=== PATIENT | male | born 1980 | race Caucasian/White ===

== ENCOUNTER 2016-12-05 08:08 | Emergency (ER) | payer BC, MEDICAID ==
[~2016-12-05] VITALS: Ht 180.3 cm; Wt 87.0 kg
[~2016-12-05 08:08] MED LIST: PRED20 PO; SUBO8MIS SL; VENTAER INH; ZITHTAB PO
[2016-12-05 08:22] VITALS: BP 119/83; PULSE 71; RESP 16; TEMP 98.1; O2SAT 99
[2016-12-05] MEDS ORDERED: DILA100C PO (08:52)
[2016-12-05] MEDS ORDERED: FAMOTIDINE 20 MG TAB PO ONE (09:15)
[2016-12-05] MEDS ORDERED: methylPREDNISolone SOD SUCC 125 MG/2 ML VIAL IM ONE (09:15)
[2016-12-05] MEDS ORDERED: diphenhydrAMINE HCL 50 MG/ML VIAL IM ONE (09:15)
[2016-12-05] MEDS ORDERED: TRIA.025%T TOPICAL (09:33)
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
== END 2016-12-05 09:41 | disposition home or self-care (01) ==
LOC: PHED 08:08
DX: S40.861A Insect bite (nonvenomous) of right upper arm, initial encounter (principal); L29.9 Pruritus, unspecified; W57.XXXA Bitten or stung by nonvenomous insect and other nonvenomous arthropods, initial encounter; Y93.9 Activity, unspecified; Y92.9 Unspecified place or not applicable; Y99.9 Unspecified external cause status
CPT/HCPCS: 96372; 96374; 99282; J1200; J2930

== ENCOUNTER 2017-02-19 22:03 | Emergency (ER) | payer BC ==
[~2017-02-19] VITALS: Ht 180.3 cm; Wt 86.8 kg
[~2017-02-19 22:03] MED LIST changes: +DILA100C PO; -PRED20 PO; +TRIA.025%T TOPICAL; -VENTAER INH; -ZITHTAB PO
[2017-02-19 22:09] VITALS: BP 139/86; PULSE 83; RESP 20; TEMP 98; O2SAT 97
[2017-02-19] MEDS ORDERED: CLIN1CAP5 PO (22:27)
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
[2017-02-19] MEDS ORDERED: CLINDAMYCIN 150 MG CAP PO ONE (22:30)
[2017-02-19] MEDS ORDERED: IBUPROFEN 400 MG TAB PO ONE (22:30)
[2017-02-19] MEDS ORDERED: PERC10TA27 PO (22:33)
[2017-02-19 22:54] VITALS: BP 126/83
== END 2017-02-19 22:54 | disposition home or self-care (01) ==
LOC: PHED 22:03
DX: K02.9 Dental caries, unspecified (principal); B19.20 Unspecified viral hepatitis C without hepatic coma; F17.200 Nicotine dependence, unspecified, uncomplicated; Z79.899 Other long term (current) drug therapy; Z88.0 Allergy status to penicillin
CPT/HCPCS: 99283

== ENCOUNTER 2017-04-21 16:09 | Emergency (ER) | payer SELFPAY ==
[~2017-04-21] VITALS: Ht 180.3 cm; Wt 81.5 kg
[~2017-04-21 16:09] MED LIST changes: +CLIN1CAP5 PO; +PERC10TA27 PO; -SUBO8MIS SL; -TRIA.025%T TOPICAL
[2017-04-21 16:11] VITALS: BP 144/79; PULSE 100; RESP 24; TEMP 98.8; O2SAT 98
== END 2017-04-21 17:33 | disposition left against medical advice (07) ==
LOC: NED 16:09
DX: R10.9 Unspecified abdominal pain (principal); Z53.21 Procedure and treatment not carried out due to patient leaving prior to being seen by health care provider
CPT/HCPCS: 99281

== ENCOUNTER 2017-05-23 01:00 | Emergency (ER) | payer SELFPAY ==
[~2017-05-23] VITALS: Ht 180.3 cm; Wt 82.0 kg
[2017-05-23 01:02] VITALS: BP 160/91; PULSE 74; RESP 16; TEMP 98.8; O2SAT 98
[2017-05-23] MEDS ORDERED: IBUP-1129 PO (01:29)
--- NOTE | 2017-05-23 01:29 | PD ---
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 He states that his feet feel swollen and tender. He denies any fevers or any other issues. Modifying Factors: None Associated Signs & Symptoms: Blisters on the feet, pain, swelling Risk Factors: None PFSH Past Medical History Diminished Hearing: No Hepatitis: Yes (HEP C) Musculoskeletal: Yes (Spinal fracture, left hand fracture ) Immunizations Current: Yes Seizures: Yes Tetanus Vaccination: < 5 Years Influenza Vaccination: Yes Social History Alcohol Use: No Tobacco Use: Yes (1 ppd) Substance Use: No Allergies-Medications (Allergen,Severity, Reaction): Coded Allergies: amoxicillin (Unverified Allergy, Severe, hives and rash, throat swelling, 05/23/17) penicillin G (Unverified Allergy, Severe, Hives all over body, 05/23/17) mushroom (Unverified Allergy, Unknown, 05/23/17) onion (Unverified Allergy, Unknown, Rash, 05/23/17) Reported Meds & Prescriptions Reported Meds & Active Scripts Active Clindamycin (Clindamycin HCl) 150 Mg Cap 300 Mg PO Q6H 7 Days Reported Percocet (Oxycodone-Acetaminophen) 10-325 mg Tab 1 Tab PO Q6H PRN Dilantin (Phenytoin Extended) 100 Mg Cap 300 Mg PO HS Review of Systems Except as stated in HPI: all other systems reviewed are Neg Physical Exam Narrative GENERAL: Well-nourished, well-developed young white male patient in no acute distress. SKIN: Focused skin assessment warm/dry. HEAD: Normocephalic. EYES: No scleral icterus. No injection or drainage. NECK: Supple, trachea midline. No JVD or lymphadenopathy. MUSCULOSKELETAL: No cyanosis, or edema. EXTREMITIES: No clubbing, cyanosis, or edema. Patient has 2 and 3 cm blisters at the bottom of both feet. There is no surrounding erythema or underlying fluctuance, tender to palpation. He has small abrasions to the ER part of both feet. Medial part of both feet. Neurovascularly intact. Data Data Last Documented VS Vital Signs Date Time Temp Pulse Resp B/P (MAP) Pulse Ox O2 Delivery O2 Flow Rate FiO2 05/23/17 01:02 98.8 74 16 160/91 (114) 98 Room Air MDM Medical Decision Making Medical Screen Exam Complete: Yes Emergency Medical Condition: Yes Medical Record Reviewed: Yes Differential Diagnosis Blisters, abrasions the feet Narrative Course There are no signs of cellulitis. At this point, I have recommended the patient avoid wet shoes or socks, and to keep his feet dry. He may have to wait doing so much walking in order to let the blisters heal. Follow-up with primary care physician as needed. Return for new issues as needed. Diagnosis Primary Impression: Blister of foot Med/Other Pt SpecificInfo: Prescription(s) given Scripts Ibuprofen (Motrin Ib) 200 Mg Tablet 600 MG PO QID Y for PAIN SCALE 1 TO 10, #21 Prov: Hero Haque MD 05/23/17 Disposition: DISCHARGE HOME Condition: Stable Hero Haque MD May 23, 2017 01:29
== END 2017-05-23 01:47 | disposition home or self-care (01) ==
LOC: NEPC 01:00
DX: S90.822A Blister (nonthermal), left foot, initial encounter (principal); S90.821A Blister (nonthermal), right foot, initial encounter; R56.9 Unspecified convulsions; F17.290 Nicotine dependence, other tobacco product, uncomplicated
CPT/HCPCS: 99282

== ENCOUNTER 2017-06-21 20:59 | Emergency (ER) | payer SELFPAY ==
[~2017-06-21] VITALS: Ht 177.8 cm; Wt 68.0 kg
[~2017-06-21 20:59] MED LIST changes: +IBUP-1129 PO
[2017-06-21 21:03] VITALS: BP 122/72; PULSE 123; RESP 22; O2SAT 95
[2017-06-21] MEDS ORDERED: LIDOCAINE 1%/EPINEPHrine 1:100,000 SOLN 50 ML VIAL ONE (21:17)
[2017-06-21 21:29] LABS: AUTOMATED NEUTROPHIL # 7.3 TH/MM3 (1.8-7.7); BASOPHIL % 0.2 % (0.0-2.0); EOSINOPHIL # 0.1 TH/MM3 (0-0.4); EOSINOPHIL % 0.7 % (0.0-4.0); HEMO FLAGS DIFF FINAL; LYMPH % 26.8 % (9.0-44.0); LYMPHOCYTE # 3.2 TH/MM3 (1.0-4.8); MEAN CELL VOLUME 87.7 FL (80.0-100.0); MEAN CORPUSCULAR HEMOGLOBIN 28.7 PG (27.0-34.0); MEAN CORPUSCULAR HGB CONC 32.7 % (32.0-36.0); MONO % 12.6 % (0.0-8.0); NEUT % 59.7 % (16.0-70.0); PLATELET COUNT 195 TH/MM3 (150-450); RED BLOOD COUNT 4.22 MIL/MM3 (4.50-5.90); RED CELL DISTRIBUTION WIDTH 13.3 % (11.6-17.2); WHITE BLOOD COUNT 12.1 TH/MM3 (4.0-11.0)
[2017-06-21] MEDS ORDERED: HYDROmorphone HCL PF 1 MG/ML VIAL IV PUSH ONE (21:45)
[2017-06-21] MEDS ORDERED: ONDANSETRON HCL 4 MG/2 ML VIAL IV PUSH ONE (21:45)
[2017-06-21 21:47] LABS: BICARBONATE 22.3 MEQ/L (21.0-32.0)
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
[2017-06-21] MEDS ORDERED: POTASSIUM CHLORIDE 20 MEQ CONTROLLED RELEASE TAB PO ONE (22:45)
[2017-06-21] MEDS ORDERED: BACT800T5 PO (22:50)
[2017-06-21] MEDS ORDERED: IBUP-232 PO (22:50)
[2017-06-21 22:59] VITALS: BP 116/78; PULSE 116; RESP 24; TEMP 98.2; O2SAT 100
[2017-06-21] MEDS ORDERED: SULFAMETHOXAZOLE-TRIMETHOPRIM DS 800-160 MG TAB PO ONE (23:00)
== END 2017-06-21 23:47 | disposition home or self-care (01) ==
LOC: NEPC 20:59
DX: S61.412A Laceration without foreign body of left hand, initial encounter (principal); W22.8XXA Striking against or struck by other objects, initial encounter
CPT/HCPCS: 12002; 73110; 73130; 80048; 85025; 96374; 96375; 99284; J1170; J2405; L3908

== ENCOUNTER 2017-06-23 01:07 | Emergency (ER) | payer SELFPAY ==
[~2017-06-23] VITALS: Ht 180.3 cm; Wt 78.0 kg
[~2017-06-23 01:07] MED LIST changes: +BACT800T5 PO; +IBUP-232 PO
[2017-06-23 01:21] VITALS: BP 119/79; PULSE 86; RESP 22; O2SAT 100
[2017-06-23 02:00] VITALS: BP 132/74; PULSE 85; RESP 22; O2SAT 98
[2017-06-23] MEDS ORDERED: ONDANSETRON HCL 4 MG/2 ML VIAL IV PUSH ONE (02:30)
[2017-06-23] MEDS ORDERED: CLINDAMYCIN INJ 600 MG in SODIUM CHLORIDE 0.9% INJ 100 ML IV ONE (02:30)
[2017-06-23] MEDS ORDERED: KETOROLAC TROMETHAMINE 30 MG/ML (IVP) VIAL IV PUSH ONE (02:30)
[2017-06-23] MEDS ORDERED: HYDROmorphone HCL PF 1 MG/ML VIAL IV PUSH ONE (02:30)
[2017-06-23] MEDS ORDERED: ULTR50TA5 PO (03:36)
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
[2017-06-23 04:04] VITALS: RESP 18
== END 2017-06-23 05:20 | disposition home or self-care (01) ==
LOC: NEPC 01:07
DX: Z48.01 Encounter for change or removal of surgical wound dressing (principal); T23.20 Burn of second degree of hand, unspecified site
CPT/HCPCS: 96365; 96375; 99284; J1170; J1885; J2405

== ENCOUNTER 2017-07-27 15:33 | Emergency (ER) | payer SELFPAY ==
[~2017-07-27] VITALS: Ht 167.6 cm; Wt 62.0 kg
[~2017-07-27 15:33] MED LIST changes: -CLIN1CAP5 PO; -DILA100C PO; -IBUP-1129 PO; -PERC10TA27 PO; +TRAM50 PO
[2017-07-27 15:34] VITALS: BP 147/81; PULSE 92; RESP 20; TEMP 98.3; O2SAT 97
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
[2017-07-27] MEDS ORDERED: DILA4TAB10 PO (16:44)
[2017-07-27 17:19] LABS: AUTOMATED NEUTROPHIL # 6.2 TH/MM3 (1.8-7.7); BASOPHIL % 0.5 % (0.0-2.0); EOSINOPHIL % 0.5 % (0.0-4.0); HEMATOCRIT 38.5 % (39.0-51.0); HEMO FLAGS DIFF FINAL; MEAN CELL VOLUME 87.6 FL (80.0-100.0); MEAN CORPUSCULAR HEMOGLOBIN 29.5 PG (27.0-34.0); MEAN CORPUSCULAR HGB CONC 33.7 % (32.0-36.0); PLATELET COUNT 256 TH/MM3 (150-450); RED BLOOD COUNT 4.39 MIL/MM3 (4.50-5.90); RED CELL DISTRIBUTION WIDTH 14.8 % (11.6-17.2)
--- NOTE | 2017-07-27 17:22 | RADRPT ---
EXAM DATE/TIME: 07/27/2017 16:48 [facility] COMPARISON: No previous studies available for comparison. INDICATIONS : Osteomyelitis, hand swelling. MEDICAL HISTORY : None. SURGICAL HISTORY : None. ENCOUNTER: Initial ACUITY: 1 day PAIN SCORE: 0/10 LOCATION: Left hand FINDINGS: Bone density is normal. The osseous structures are in normal alignment. There is moderate soft tiss ue swelling of the 2nd and 3rd digits. No periosteal reaction no focal areas of bony destruction. N o significant arthropathy. There is a 3 mm ossific density adjacent to the tip of the ulnar styloid which may represent a small avulsion injury. CONCLUSION: 1. Soft tissue swelling the 2nd and 3rd digits; osseous structures of the digits have a normal radiog raphic appearance. 2. Possible small avulsion injury off the tip of the ulnar styloid. Isak Moore MD on July 27, 2017 at 17:19 Board Certified Radiologist. This report was verified electronically.
[2017-07-27 18:00] LABS: ALKALINE PHOSPHATASE 70 U/L (45-117); TOTAL BILIRUBIN ADULT 0.7 MG/DL (0.2-1.0)
[2017-07-27 18:04] LABS: ALT (GPT) 104 U/L (12-78); ANION GAP 7 MEQ/L (5-15); AST (GOT) 91 U/L (15-37); BICARBONATE 26.8 MEQ/L (21.0-32.0); BLOOD UREA NITROGEN 11 MG/DL (7-18); CHLORIDE 99 MEQ/L (98-107); GLOMERULAR FILTRATION RATE 108 ML/MIN (>89); POTASSIUM 4.8 MEQ/L (3.5-5.1); SODIUM (NA) 133 MEQ/L (136-145)
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
[2017-07-27] MEDS ORDERED: KETOROLAC TROMETHAMINE 30 MG/ML (IVP) VIAL IV PUSH ONE (19:30)
[2017-07-27] MEDS ORDERED: CLINDAMYCIN INJ 900 MG in SODIUM CHLORIDE 0.9% INJ 100 ML IV ONE (20:00)
[2017-07-27] MEDS ORDERED: CLIN300C5 PO (20:40)
[2017-07-27] MEDS ORDERED: SILVER SULFADIAZINE 1% CR 50 GM JAR TOPICAL ONE (21:15)
[2017-07-27] MEDS ORDERED: MORPHINE SULFATE 4 MG/ML INJ IV PUSH ONE (21:15)
[2017-07-27 21:20] VITALS: BP 121/70; PULSE 80; RESP 18; O2SAT 97
[2017-07-27 21:46] VITALS: BP 122/71; PULSE 82; RESP 18; O2SAT 97
== END 2017-07-27 22:39 | disposition home or self-care (01) ==
LOC: NEPD 15:33
DX: T23.3 Burn of third degree of wrist and hand (principal); B95.62 Methicillin resistant Staphylococcus aureus infection as the cause of diseases classified elsewhere; B95.0 Streptococcus, group A, as the cause of diseases classified elsewhere; B19.20 Unspecified viral hepatitis C without hepatic coma; X17.XXXD Contact with hot engines, machinery and tools, subsequent encounter
CPT/HCPCS: 16020; 73120; 80053; 85025; 85652; 86140; 86403; 87070; 87186; 96365; 96375; 99284; J1885; J2270; 87205

== ENCOUNTER 2017-11-18 00:30 | Emergency (ER) | payer SELFPAY ==
[~2017-11-18] VITALS: Ht 180.3 cm; Wt 65.0 kg
[~2017-11-18 00:30] MED LIST changes: -BACT800T5 PO; +CLIN300C5 PO; +DILA4TAB10 PO; -IBUP-232 PO; -TRAM50 PO
[2017-11-18 00:33] VITALS: BP 129/60; PULSE 100; RESP 20; TEMP 88.2; TEMP 98.2; O2SAT 100
[2017-11-18] MEDS ORDERED: DILA30CA PO (00:56)
[2017-11-18 00:57] VITALS: BP 125/72; PULSE 81; RESP 22; O2SAT 99
--- NOTE | 2017-11-18 01:43 | PD ---
HPI Chief Complaint: Fall Time Seen by Provider: 01:05 Travel History International Travel<30 days: No Contact w/Intl Traveler<30days: No Traveled to known affect area: No History of Present Illness HPI Patient is a 37-year-old male who apparently was walking slipped tried to not put out his left hand to block his fall because he has mane that have healed over the last year to have third-degree mane to his hand that are old and healing however and avoiding using his hand he landed square on his left rib cage has pain mid ribs abdomen and rib 12 through fourth rib on the left. Happened 6 hours prior to arrival but when he went home and tried to lay on that area to fall sleep he woke up in severe pain and unable to breathe denies shortness of breath patient is very somnolent in the exam room. 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) Allergies-Medications (Allergen,Severity, Reaction): Coded Allergies: amoxicillin (Verified Allergy, Severe, hives and rash, throat swelling, ) penicillin G (Verified Allergy, Severe, Hives all over body, 11/18/17) mushroom (Verified Allergy, Unknown, 11/18/17) onion (Verified Allergy, Unknown, Rash, 11/18/17) Reported Meds & Prescriptions Reported Meds & Active Scripts Active Reported Dilantin (Phenytoin Extended) 30 Mg Cap 60 Mg PO TID Review of Systems Except as stated in HPI: all other systems reviewed are Neg Cardiovascular: Positive: Chest Pain or Discomfort (chestwall tender left front ) Physical Exam Narrative GENERAL: pt has strange affect very sleepy as well SKIN: Warm and dry. HEAD: Atraumatic. Normocephalic. EYES: Pupils equal and round. No scleral icterus. No injection or drainage. ENT: No nasal bleeding or discharge. Mucous membranes pink and moist. NECK: Trachea midline. No JVD. CARDIOVASCULAR: Regular rate and rhythm. Left chest wall pain ... no hematoma nor step off felt .. RESPIRATORY: No accessory muscle use. Clear to auscultation. Breath sounds equal bilaterally. GASTROINTESTINAL: Abdomen soft, non-tender, nondistended. Hepatic and splenic margins not palpable. MUSCULOSKELETAL: Extremities healed mane all over his left hand deformed fingers without nails ... NEUROLOGICAL: Awake and alert. No obvious cranial nerve deficits. Motor grossly within normal limits. Five out of 5 muscle strength in the arms and legs. Normal speech. PSYCHIATRIC: Appropriate mood and affect; insight and judgment normal. Data Data Last Documented VS Vital Signs Date Time Temp Pulse Resp B/P (MAP) Pulse Ox O2 Delivery O2 Flow Rate FiO2 11/18/17 03:39 11/18/17 00:57 81 22 99 Room Air 11/18/17 00:[address] Thorax/ Chest Wo Iv Contras (11/18/17 ) Ct Abd/Pel W/O Iv Contrast (11/18/17 ) Ed Discharge Order (11/18/17 03:32) MDM Medical Decision Making Medical Screen Exam Complete: Yes Emergency Medical Condition: Yes Differential Diagnosis contusions, rib fracture , pneumothorax , Narrative Course CT abdo chest no injury found ibuprofen and discharge Diagnosis Primary Impression: Rib contusion Qualified Codes: S20.212A - Contusion of left front wall of thorax, initial encounter Patient Instructions: Contusion in Adults (ED), General Instructions Disposition: 01 DISCHARGE HOME Condition: Good Cooper Woodson MD Nov 18, 2017 01:43
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
== END 2017-11-18 04:14 | disposition home or self-care (01) ==
LOC: NEPE 00:30
DX: S20.212A Contusion of left front wall of thorax, initial encounter (principal); F17.200 Nicotine dependence, unspecified, uncomplicated; W01.0XXA Fall on same level from slipping, tripping and stumbling without subsequent striking against object, initial encounter; Y93.01 Activity, walking, marching and hiking
CPT/HCPCS: 71250; 74176; 99283

== ENCOUNTER 2018-07-04 09:21 | Inpatient (IN) ==
[2018-07-04] MEDS ORDERED: Acetaminophen 325 MG Tablet PO ONE (13:11)
[2018-07-04] MEDS ORDERED: Ketorolac Inj 30 MG/ML (IVP) Vial IV.PUSH ONE (13:11)
[2018-07-04] MEDS ORDERED: Clindamycin 600 mg/NS Premix 600 MG/50 ML PIGGYBACK IV.SIG ONE (13:20)
--- NOTE | 2018-07-04 13:42 | ED ---
HPI General Chief complaint: Skin/Abscess/Foreign Body Stated complaint: swollen right leg Time Seen by Provider: 07/04/18 13:03 Source: patient Mode of arrival: ambulatory Limitations: no limitations History of Present Illness HPI narrative: The patient is a 38-year-old male who presents to the emergency department for right lower extremity edema and infection. The patient was seen in emergency department over 1 week ago for an infection to the right lower extremity. The patient states he was placed on clindamycin at that time, took the antibiotic as directed, however, the leg is progressively worsened. He does note some edema of the right lower extremity as well as erythema and redness with some draining over the anterior aspect of the right lower extremity. He denies any current fever. 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 Patient states he was homeless for several weeks which may have exacerbated his symptoms, he thinks he possibly was bit by an insect at the beginning of his illness. Symptoms are moderate, not alleviated with clindamycin. MD complaint: Reports abscess/boil Onset (ago): day(s) Tetanus Immunization: <5 Years Location: Reports LLE Severity: moderate Severity scale (1-10): 6 Quality: Reports aching and dull Pain Consistency: intermittent Relieving factors: none Exacerbating factors: none Context: Reports IVDA and other Associated symptoms: Reports denies other symptoms Treatments prior to arrival: Reports attempted to drain pus at home and antibiotic Related Data Home Medications Medication Instructions Recorded Confirmed No Known Home Medications 07/04/18 07/04/18 Allergies Allergy/AdvReac Type Severity Reaction Status Date / Time amoxicillin Allergy Severe hives and Verified 07/04/18 13:55 rash, throat swelling penicillin G Allergy Severe Hives all Verified 07/04/18 13:55 over body mushroom Allergy Unknown Anaphylaxis Verified 07/04/18 13:55 onion Allergy Unknown Rash Verified 07/04/18 13:55 vancomycin Allergy Anaphylaxis Verified 07/04/18 13:55 Review of Systems ROS: all other systems reviewed are negative [facility] Medical History Medical History Hepatitis C (Acute) Medical history unknown (Acute) Surgical History Surgical History H/O hand surgery (Acute) Social History Social History Substance History: Active Abuse Second Hand Smoke Exposure: Yes Smoking Status: Current every day smoker Tobacco Type: Cigarettes How Often Do You Have a Drink Containing Alcohol: Never Recent Travel in [facility] within the Last 8 Weeks: No Recent Out of Country Travel within the Last 8 Weeks: No Exam Narrative Exam Narrative: GENERAL: Awake, alert, pleasant 38-year-old male who appears his stated age and is in no acute respiratory distress. SKIN: Focused skin assessment warm/dry. HEAD: Atraumatic. Normocephalic. EYES: No injection or drainage. ENT: No nasal bleeding or discharge. Mucous membranes pink and moist. NECK: Trachea midline. No JVD. CARDIOVASCULAR: Regular rate and rhythm. No murmur appreciated. RESPIRATORY: No accessory muscle use. Clear to auscultation. Breath sounds equal bilaterally. GASTROINTESTINAL: Abdomen soft, non-tender, nondistended. Hepatic and splenic margins not palpable. MUSCULOSKELETAL: The right lower extremity is edematous when compared to the left. The patient does have an open draining wound over the anterior aspect of the right proximal tibia/fibula. There is some surrounding erythema. There is no visible erythema proximal to the right knee. Mild fluctuance, does drain some serosanguineous drainage out of the open wound upon applying pressure. Patient is able flex and extend the right knee as well as the right ankle. NEUROLOGICAL: Awake and alert. No obvious cranial nerve deficits. Motor grossly within normal limits. Normal speech. PSYCHIATRIC: Appropriate mood and affect; insight and judgment normal. Course Initial Documented Vital Signs Temperature 98.3 F 07/04/18 09:40 Pulse Rate 82 07/04/18 09:40 Respiratory Rate 19 07/04/18 09:40 Blood Pressure 126/76 07/04/18 09:40 Pulse Oximetry 97 07/04/18 09:40 Last Documented Vital Signs Temperature 98.3 F 07/04/18 09:40 Pulse Rate 82 07/04/18 09:40 Respiratory Rate 19 07/04/18 09:40 Blood Pressure 126/76 07/04/18 09:40 Pulse Oximetry 97 07/04/18 09:40 Medical Decision Making MDM Narrative Medical decision making narrative: IV was established, labs are drawn and sent, and the patient was placed on cardiac telemetry monitoring and continuous pulse oximetry monitoring. I did review the EMR, the patient had an ultrasound on previous visit which was negative for DVT. The patient was prescribed clindamycin. The patient is failed outpatient therapy, I considered administering the patient Dalvance, however, he has anaphylaxis/hives to vancomycin. I discussed the patient with pharmacy who states that this is an absolute contraindication to receiving Dalvance. Therefore, blood cultures and lactic acid were sent to lab. The patient was administered clindamycin and Bactrim. The patient has failed outpatient therapy, is not a candidate for Dalvance, therefore, will be admitted for IV antibiotics, may consider ID consultation with a history of IVDA. Medical Screen Exam Complete: Yes Emergency Medical Condition: Yes Differential Diagnosis Differential Diagnosis: Differential diagnosis includes cellulitis, infected wound, failed outpatient therapy, sepsis, DVT, abscess. Lab Data Result diagrams: 07/04/18 13:45 07/04/18 13:45 Lab Results 07/04/18 07/04/18 Range/Units 13:45 13:45 WBC 8.3 (4.0-11.0) th/mm3 RBC 3.89 L (4.50-5.90) mil/mm3 Hgb 11.4 L (13.0-17.0) gm/dL Hct 34.5 L (39.0-51.0) % MCV 88.8 (80.0-100.0) fL MCH 29.4 (27.0-34.0) pg MCHC 33.1 (32.0-36.0) % RDW 13.3 (11.6-17.2) % Plt Count 198 (150-450) th/mm3 MPV 9.0 (7.0-11.0) fL Neut % (Auto) 65.0 (16.0-70.0) % Lymph % (Auto) 24.1 (9.0-44.0) % Nicholas % (Auto) 9.6 H (0.0-8.0) % Eos % (Auto) 1.0 (0.0-4.0) % Baso % (Auto) 0.3 (0.0-2.0) % Neut # (Auto) 5.4 (1.8-7.7) th/mm3 Lymph # (Auto) 2.0 (1.0-4.8) th/mm3 Nicholas # (Auto) 0.8 (0.0-0.9) th/mm3 Eos # (Auto) 0.1 (0.0-0.4) th/mm3 Baso # (Auto) 0.0 (0.0-0.2) th/mm3 WBC Differential . Differential Comment Auto diff final Sodium 136 (136-145) meq/L Potassium 3.4 L (3.5-5.1) meq/L Chloride 98 (98-107) meq/L Carbon Dioxide 29.3 (21.0-32.0) meq/L Anion Gap 9 (5-15) meq/L BUN 10 (7-18) mg/dL Creatinine 0.69 (0.60-1.30) mg/dL Estimated GFR Greater than 89 (>89) mL/min Random Glucose 94 (74-106) mg/dL Calcium 9.0 (8.5-10.1) mg/dL Discharge Plan Discharge Disposition Patient Disposition: 30 Still Patient Discharge Condition Condition: Stable Discharge Details Diagnosis: Cellulitis Physicians Team ED Provider: Yoni Harmon Primary Care Provider: Primary Care SofieiAnita Rxs /Orders / Referrals /Forms Prescriptions: No Action No Known Home Medications RF: 0 Status ED Status: Pending Admission
[2018-07-04] MEDS: Sod Chloride 0.9% Inj 1,000 ML IV.SIG SCH (14:01)
[2018-07-04 14:08] LABS: Baso % (Auto) 0.3 % (0.0-2.0); Eos # (Auto) 0.1 th/mm3 (0.0-0.4); Hematocrit 34.5 % (39.0-51.0); Hemoglobin 11.4 gm/dL (13.0-17.0); Lymph % (Auto) 24.1 % (9.0-44.0); Mean Corpuscular HGB Conc 33.1 % (32.0-36.0); Mean Corpuscular Hemoglobin 29.4 pg (27.0-34.0); Mean Corpuscular Volume 88.8 fL (80.0-100.0); Mono # (Auto) 0.8 th/mm3 (0.0-0.9); Mono % (Auto) 9.6 % (0.0-8.0); Neut # (Auto) 5.4 th/mm3 (1.8-7.7); Platelet Count 198 th/mm3 (150-450); Red Blood Count 3.89 mil/mm3 (4.50-5.90); Red Cell Distribution Width 13.3 % (11.6-17.2); White Blood Count 8.3 th/mm3 (4.0-11.0)
[2018-07-04 14:23] LABS: Anion Gap 9 meq/L (5-15); Blood Urea Nitrogen 10 mg/dL (7-18); Carbon Dioxide 29.3 meq/L (21.0-32.0); Chloride 98 meq/L (98-107); Glomerular Filtration Rate Greater Than 89 mL/min (>89); Glucose,Random 94 mg/dL (74-106); Potassium 3.4 meq/L (3.5-5.1); Sodium 136 meq/L (136-145)
--- NOTE | 2018-07-04 15:48 | P.HP ---
History of Present Illness Primary Care Physician: No Primary Care Physician History of Present Illness: 38-year-old white male being admitted for possible abscess, refractory cellulitis. Patient was in his usual state of health until yesterday when he noticed that his right lower extremity infection started draining again with increasing pain and redness. Reports being nauseated but no vomiting, no fevers. He took some Percocet that was not his to help alleviate the pain. Initially the patient says his leg condition was improving once he was discharged from the emergency department about 10-14 days ago with clindamycin, however his symptoms relapsed. On 06/22 pt had come in to the ER with a painful right leg, diagnosed with cellulitis and discharged home with clindamycin. At that time he had edema and erythema from just below his patella to his ankle which showed significant improvement with cessation of drainage while being tx'd clindamycin. Claims his was appropriately administering the clindamycin to him which was dosed at 300 mg every 8 hours. A wound culture at that time grewHowever over the last 24 hours his symptoms unfortunately relapsed and had substantial pain which worsened with weightbearing, now with recurring drainage. He says he is able to apply pressure to the medial aspect of his leg and his original open sore now drains again with considerable pain. He initially had an arterial Doppler study done upon the initial ER visit which was negative for thrombosis. In the emergency department the patient was given a dose of 600 mg of IV Clinda mycin and Bactrim. He was not a candidate for Dalvance due to a listed vancomycin anaphylaxis allergy. Review of Systems All other systems reviewed negative except as stated in HPI PMFSH - History History Provided By: Patient - Medical History Medical History: Medical History (Last Reviewed 07/04/18 @ 15:38 by Ian Scott MD) Hepatitis C Medical history unknown - Surgical History Surgical History: Surgical History (Last Reviewed 07/04/18 @ 15:38 by Ian Scott MD) H/O hand surgery - Family History Family History: Family History (Last Updated 07/04/18 @ 15:39 by Ian Scott MD) Other Cellulitis, leg - Social History I have reviewed the patient's Social History: Yes - Tobacco History Second Hand Smoke Exposure: Yes Tobacco Use In Past 30 Days: Yes Smoking Status: Current every day smoker Tobacco Type: Cigarettes - Alcohol History How Often Do You Have a Drink Containing Alcohol: Never - Substance Use History Substance History: 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 - Travel History Recent Travel in the [place] Within the Last 8 Weeks: No Recent Travel Out of the Country Within the Last 8 Weeks: No - Immunization History Tetanus Immunization: <5 Years Medications and Allergies Active Medications: Active Medications Sodium Chloride (Ns Inj) 1,000 mls @ 0 mls/hr IV.SIG BOLUS SHANTAL Last Infusion: 07/04/18 15:09 Dose: Infused Allergies Allergy/AdvReac Type Severity Reaction Status Date / Time amoxicillin Allergy Severe hives and Verified 07/04/18 13:55 rash, throat swelling penicillin G Allergy Severe Hives all Verified 07/04/18 13:55 over body mushroom Allergy Unknown Anaphylaxis Verified 07/04/18 13:55 onion Allergy Unknown Rash Verified 07/04/18 13:55 vancomycin Allergy Anaphylaxis Verified 07/04/18 13:55 Home Medications Medication Instructions Recorded Confirmed Type No Known Home Medications 07/04/18 07/04/18 History Exam Vital signs: Vital Signs 07/04/18 09:40 Temperature 98.3 F Pulse Rate 82 Respiratory Rate 19 Blood Pressure 126/76 Pulse Oximetry 97 Intake & Output 07/03/18 07/04/18 07/04/18 18:59 06:59 18:59 Intake Total 1050 / 1050 Balance 1050 / 1050 Weight 81.647 kg Intake: IV 1050 / 1050 Cleocin 600 mg/NS Premix 600 mg 50 / 50 In 50 ml @ 100 mls/hr IV.SIG ONCE ONE Rx#:[id number] NS Inj 1,000 ML @ Wide Open IV. 1000 / 1000 SIG BOLUS SHANTAL Rx#:[id number] Narrative: VS: afebrile GENERAL: Young well-nourished white male, lying in bed SKIN: Warm and dry. EYES: No scleral icterus. No injection or drainage. ENT: No nasal bleeding or discharge. Normocephalic, atraumatic CARDIOVASCULAR: Regular rate and rhythm. no murmurs RESPIRATORY: No accessory muscle use. Clear to auscultation. Breath sounds equal bilaterally. GASTROINTESTINAL: Abdomen soft, non-tender, nondistended. Extremities: No clubbing, cyanosis. Right lower extremity has diffuse mild to moderate edema extending from the infrapatellar margin to the ankle, with erythema noted on the anterior sosa just distal to the infrapatellar region. He has a sore that drains when he applied pressure to the medial aspect of his leg which has broad bulging and is exquisitely tender to palpation MUSCULOSKELETAL: Adequate muscle bulk and tone for age and habitus NEUROLOGICAL: Awake and alert. No obvious cranial nerve deficits. No facial droop nor slurred speech noted. PSYCHIATRIC: Appropriate mood and affect; insight and judgment normal. Results - Labs CBC & Chem 7: 07/04/18 13:45 07/04/18 13:45 Labs: Laboratory Results - last 24 hr 07/04/18 07/04/18 13:45 13:45 WBC 8.3 RBC 3.89 L Hgb 11.4 L Hct 34.5 L MCV 88.8 MCH 29.4 MCHC 33.1 RDW 13.3 Plt Count 198 MPV 9.0 Neut % (Auto) 65.0 Lymph % (Auto) 24.1 Webb % (Auto) 9.6 H Eos % (Auto) 1.0 Baso % (Auto) 0.3 Neut # (Auto) 5.4 Lymph # (Auto) 2.0 Webb # (Auto) 0.8 Eos # (Auto) 0.1 Baso # (Auto) 0.0 WBC Differential . Differential Comment Auto diff final Sodium 136 Potassium 3.4 L Chloride 98 Carbon Dioxide 29.3 Anion Gap 9 BUN 10 Creatinine 0.69 Estimated GFR Greater than 89 Random Glucose 94 Calcium 9.0 Caprini VTE Risk Assessment Caprini VTE Risk Assessment: No/Low Risk (score <= 1) Caprini Risk Assessment Model: Point Value = 1 Point Value = 2 Point Value = 3 Point Value = 5 Age 41-60 Minor surgery BMI > 25 kg/m2 Swollen legs Varicose veins or History of unexplained or recurrent spontaneous Oral contraceptives or hormone replacement Sepsis (< 1 month) Serious lung disease, including pneumonia (< 1 month) Abnormal pulmonary function Acute myocardial infarction Congestive heart failure (< 1 month) History of inflammatory bowel disease Medical patient at bed rest Age 61-74 Arthroscopic surgery Major open surgery (> 45 min) Laparoscopic surgery (> 45 min) Malignancy Confined to bed (> 72 hours) Immobilizing plaster cast Central venous access Age >= 75 History of VTE Family history of VTE Factor V Leiden Prothrombin [id number] Lupus anticoagulant Anticardiolipin antibodies Elevated serum homocysteine Heparin-induced thrombocytopenia Other congenital or acquired thrombophilia Stroke (< 1 month) Elective arthroplasty Hip, pelvis, or leg fracture Acute spinal cord injury (< 1 month) Prophylaxis Regimen: Total Risk Factor Score Risk Level Prophylaxis Regimen 0-1 Low Early ambulation 2 Moderate Order ONE of the following: *Sequential Compression Device (SCD) *Heparin 5000 units SQ BID 3-4 Higher Order ONE of the following medications: *Heparin 5000 units SQ TID *Enoxaparin/Lovenox 40 mg SQ daily (WT < 150 kg, CrCl > 30 mL/min) *Enoxaparin/Lovenox 30 mg SQ daily (WT < 150 kg, CrCl > 10-29 mL/min) *Enoxaparin/Lovenox 30 mg SQ BID (WT < 150 kg, CrCl > 30 mL/min) AND/OR *Sequential Compression Device (SCD) 5 or more Highest Order ONE of the following medications: *Heparin 5000 units SQ TID (Preferred with Epidurals) *Enoxaparin/Lovenox 40 mg SQ daily (WT < 150 kg, CrCl > 30 mL/min) *Enoxaparin/Lovenox 30 mg SQ daily (WT < 150 kg, CrCl > 10-29 mL/min) *Enoxaparin/Lovenox 30 mg SQ BID (WT < 150 kg, CrCl > 30 mL/min) AND *Sequential Compression Device (SCD) Assessment and Plan - Plan 38-year-old white male being admitted for possible RLE abscess, refractory cellulitis Right lower extremity infection Possible abscess, refractory cellulitis -Likely result of possible abscess formation and/or under dosing of antibiotics from possible noncompliance right lower extremity soft tissue ultrasound -podiatry consulted for possible I&D -Infectious disease consulted given refractory infection (which could be secondary to abscess formation or refractory cellulitis) and antibiotic limitations due to allergies. Wound culture is growing, I suspect that the same MSSA will grow out, continue high dose clindamycin for now
--- NOTE | 2018-07-04 16:11 | US ---
EXAM DATE: 07/04/2018 12:00 AM EDT AGE/SEX: 38 years / Male INDICATIONS: Left lower leg redness and swelling. CLINICAL DATA: This is the patient's initial encounter. Patient reports that signs and symptoms have been present for 3 days and indicates a pain score of 5/10. MEDICAL/SURGICAL HISTORY: Hepatitis C. . Hand surgery. COMPARISON: No prior exams available for comparison. FINDINGS: A focused ultrasound of the right lower extremity was performed. There is diffuse nonspecific soft ti ssue swelling and edema in the subcutaneous soft tissues. No loculated fluid collections are seen. CONCLUSION: 1. Nonspecific soft tissue swelling and edema in the subcutaneous soft tissues. No drainable loculat ed fluid collections. Electronically signed by: Augustus Watters MD 07/04/2018 4:10 PM EDT
[2018-07-04] MEDS: Ketorolac Inj 30 MG/ML (IVP) Vial IV.PUSH PRN (16:50)
[2018-07-04] MEDS: Sod Chloride 0.9% Inj 1,000 ML IV.CONT SCH (16:51)
[2018-07-05] MEDS: Clindamycin 600 mg/NS Premix 600 MG/50 ML PIGGYBACK IV.SIG SCH ×3 (00:01→13:32)
[2018-07-05] MEDS: Ketorolac Inj 30 MG/ML (IVP) Vial IV.PUSH PRN ×4 (06:12→20:08)
--- NOTE | 2018-07-05 09:40 | P.CONID ---
History of Present Illness Service: Infectious Disease Consult date: 07/05/18 Requesting Physician: Ian Scott Reason for Consult: Evaluate patient with cellulitis, abscess failed outpatient treatment Primary Care Provider: No Primary Care Physician Family Provider: No Primary Care Physician History of Present Illness: Patient seen and examined. Records reviewed. Patient is a 38-year-old male, who initially presented to the emergency room on June 22 complaining of pain and swelling on his right leg. He really did not know how he got it but when he noticed that there was a green area on his right leg. It started draining and he went to the emergency room about 3 days after he had noticed a problem. In the emergency room he was diagnosed to have cellulitis, and he was given clindamycin. His problem reportedly improved and he completed the prescribed course of antibiotics. However after he ran out, he started noticing redness, swelling and pain, and it was progressively worsening so he presented to the hospital for further evaluation and treatment. There was a culture of the wound done and it grew MSSA. He has not had any fever chills or sweats. Denies any respiratory, GI or any urinary complaints. Since admission he has not been febrile. Patient has multiple antibiotic allergies. He had severe hives and shortness of breath when he was given penicillin. And he apparently had the same reaction to vancomycin in 1 of his hospitalization in [place]. Infectious disease consultation has been requested to assist with evaluation and treatment. Review of Systems Constitutional: Denies chills, Denies fever(s), Denies lack of energy, Denies night sweats, Denies weakness Eyes: Denies discharge, Denies dry eyes Ears, Nose, Mouth, and Throat: Denies difficulty swallowing, Denies ear pain, Denies facial pain, Denies nasal discharge, Denies pain with swallowing, Denies sore throat Cardiovascular: Denies chest pain, Denies shortness of breath Respiratory: Denies chest congestion, Denies cough, Denies shortness of breath Gastrointestinal: Denies abdominal pain, Denies loose stools, Denies nausea, Denies pain with swallowing, Denies vomiting Genitourinary: Denies difficulty urinating, Denies painful urination Musculoskeletal: Denies joint pain, Denies joint swelling Skin/Breast: Reports wounds Neurologic: Denies headache(s) PMFSH - History History Provided By: Patient - Medical History Medical History: Medical History (Last Reviewed 07/05/18 @ 09:36 by Aliza Yadav MD) Hepatitis C Medical history unknown - Surgical History Surgical History: Surgical History (Last Reviewed 07/05/18 @ 09:36 by Aliza Yadav MD) H/O hand surgery - Family History Family History: Family History (Last Reviewed 07/05/18 @ 09:36 by Aliza Yadav MD) Other Cellulitis, leg - Tobacco History Second Hand Smoke Exposure: Yes Tobacco Use In Past 30 Days: Yes Smoking Status: Current every day smoker Tobacco Type: Cigarettes - Alcohol History How Often Do You Have a Drink Containing Alcohol: Never - Substance Use History Substance History: 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 - Travel History Recent Travel in the [place] Within the Last 8 Weeks: No Recent Travel Out of the Country Within the Last 8 Weeks: No - Immunization History Tetanus Immunization: <5 Years Medications and Allergies Active Medications: Active Medications Sodium Chloride (Ns Inj) 1,000 mls @ 0 mls/hr IV.SIG BOLUS [facility] Last Infusion: 07/04/18 15:09 Dose: Infused Sodium Chloride (Ns Inj) 1,000 mls @ 42 mls/hr IV.CONT .[id number] [facility] Last Admin: 07/04/18 16:51 Dose: 42 mls/hr Clindamycin/Sodium Chloride (Cleocin 600 Mg/Ns Premix) 600 mg in 50 mls @ 100 mls/hr IV.SIG Q8H SHANTAL Stop: 07/05/18 14:59 Last Infusion: 07/05/18 06:40 Dose: Infused Ketorolac Tromethamine (Toradol Inj) 15 mg IV.PUSH Q6H PRN PRN Reason: Acute Pain Stop: 07/09/18 13:59 Last Admin: 07/05/18 06:12 Dose: 15 mg Sodium Chloride (Ns Flush) 2 ml IV.FLUSH BID SHANTAL Last Admin: 07/05/18 08:42 Dose: Not Given Sodium Chloride (Ns Flush) 2 ml IV.FLUSH PRN PRN PRN Reason: FLUSH AFTER USING IV ACCESS Allergies Allergy/AdvReac Type Severity Reaction Status Date / Time amoxicillin Allergy Severe hives and Verified 07/04/18 13:55 rash, throat swelling penicillin G Allergy Severe Hives all Verified 07/04/18 13:55 over body mushroom Allergy Unknown Anaphylaxis Verified 07/04/18 13:55 onion Allergy Unknown Rash Verified 07/04/18 13:55 vancomycin Allergy Anaphylaxis Verified 07/04/18 13:55 Home Medications Medication Instructions Recorded Confirmed Type No Known Home Medications 07/04/18 07/04/18 History Exam Vital signs: Vital Signs 07/04/18 09:40 07/04/18 13:49 07/04/18 16:14 Temperature 98.3 F 98.1 F Pulse Rate 82 58 L 58 L Respiratory Rate 19 20 20 Blood Pressure 126/76 97/62 L 97/62 L Pulse Oximetry 97 97 97 07/04/18 17:03 07/04/18 20:00 07/05/18 00:00 Temperature 97.8 F 97.8 F 97.6 F Pulse Rate 56 L 64 83 Respiratory Rate 16 18 18 Blood Pressure 102/61 113/67 116/59 L Pulse Oximetry 98 98 97 07/05/18 08:00 Temperature 98 F Pulse Rate 78 Respiratory Rate 16 Blood Pressure 111/70 Pulse Oximetry 95 Intake & Output 07/04/18 07/05/18 07/05/18 18:59 06:59 18:59 Intake Total 1410 / 1410 340 / 340 Balance 1410 / 1410 340 / 340 Weight 81.647 kg 75.8 kg Intake: IV 1050 / 1050 100 / 100 Cleocin 600 mg/NS Premix 600 mg 50 / 50 100 / 100 In 50 ml @ 100 mls/hr IV.SIG Q8H SHANTAL Rx#:[id number] NS Inj 1,000 ML @ Wide Open IV. 1000 / 1000 SIG BOLUS SHANTAL Rx#:[id number] Oral 360 / 360 240 / 240 Other: # Voids 0 3 Narrative: Physical Examination GENERAL: Patient is a well-nourished, well-developed male, awake and alert, not in respiratory distress. SKIN: Cool and dry. No generalized rash, no ecchymoses and no evidence of embolic lesions. HEAD: Atraumatic. Normocephalic. No temporal wasting, or tenderness. EYES: [place] conjunctiva. No petechia or hemorrhage. Pupils equal, round and reactive to light. Extraocular movements full and intact. No scleral icterus. No injection or drainage. EARS, NOSE AND THROAT: Nose without bleeding or purulent nasal discharge. No sinus tenderness. Mucous membranes pink and moist. No oral lesions noted. No exudate. No oral thrush. NECK: Trachea midline. Supple and not tender, no meningeal signs CARDIOVASCULAR: Regular rate and rhythm. No murmurs, rubs or gallops heard RESPIRATORY: Clear to auscultation. Breath sounds equal bilaterally. No rales , wheezing or rhonchi ABDOMEN: Soft, non-tender, nondistended. Bowel sounds present and normoactive. No guarding. No rebound. No organomegaly. EXTREMITIES: No clubbing, cyanosis. His RLE is slightly larger then his LLE. There is an open wound on proximal anterior leg that is about 1/2 inch diameter with reddish benjamin purulent drainage, sorrounded by induration and erythema, no odor. has R calf tenderness. Negative Nena's sign. NEUROLOGICAL: Awake and alert. Cranial nerves grossly intact. Motor grossly within normal limits. PSYCHIATRIC: Normal affect, calm and cooperative. LINE: No evidence of infection Results - Labs CBC & Chem 7: 07/04/18 13:45 07/04/18 13:45 Labs: Laboratory Results - last 24 hr 07/04/18 07/04/18 07/04/18 13:45 13:45 15:45 WBC 8.3 RBC 3.89 L Hgb 11.4 L Hct 34.5 L MCV 88.8 MCH 29.4 MCHC 33.1 RDW 13.3 Plt Count 198 MPV 9.0 Neut % (Auto) 65.0 Lymph % (Auto) 24.1 Pender % (Auto) 9.6 H Eos % (Auto) 1.0 Baso % (Auto) 0.3 Neut # (Auto) 5.4 Lymph # (Auto) 2.0 Pender # (Auto) 0.8 Eos # (Auto) 0.1 Baso # (Auto) 0.0 WBC Differential . Differential Comment Auto diff final Sodium 136 Potassium 3.4 L Chloride 98 Carbon Dioxide 29.3 Anion Gap 9 BUN 10 Creatinine 0.69 Estimated GFR Greater than 89 Random Glucose 94 Lactic Acid 0.6 Calcium 9.0 - Imaging Impressions Lower Extremity Ultrasound 07/04/18 00:00 CONCLUSION: 1. Nonspecific soft tissue swelling and edema in the subcutaneous soft tissues. No drainable loculated fluid collections. Assessment and Plan - Plan Impression Cellulitis RLE, ikproved, but worsened after Abx stopped - C/S MSSA Severe reaction to PCN and vancomycin Recommendation MRI R Leg - see if any other focus that needs drainage which could explain recurrence of infection Continue IV Clindamycin Wound care Follow clinical progress I will determine course of Rx once workup completed I will follow along with you Thank you for this consultation Explained plan to the patient
--- NOTE | 2018-07-05 11:15 | P.PN ---
Subjective Interval history: Nursing denies any deterioration since last night. Patient himself says that the pain is relatively unchanged. Physical Exam Vital signs: Vital Signs 07/04/18 13:49 07/04/18 16:14 07/04/18 17:03 Temperature 98.1 F 97.8 F Pulse Rate 58 L 58 L 56 L Respiratory Rate 20 20 16 Blood Pressure 97/62 L 97/62 L 102/61 Pulse Oximetry 97 97 98 07/04/18 20:00 07/05/18 00:00 07/05/18 08:00 Temperature 97.8 F 97.6 F 98 F Pulse Rate 64 83 78 Respiratory Rate 18 18 16 Blood Pressure 113/67 116/59 L 111/70 Pulse Oximetry 98 97 95 Intake & Output 07/04/18 07/05/18 07/05/18 18:59 06:59 18:59 Intake Total 1410 / 1410 340 / 340 Balance 1410 / 1410 340 / 340 Weight 81.647 kg 75.8 kg Intake: IV 1050 / 1050 100 / 100 Cleocin 600 mg/NS Premix 600 mg 50 / 50 100 / 100 In 50 ml @ 100 mls/hr IV.SIG Q8H SHANTAL Rx#:[id number] NS Inj 1,000 ML @ Wide Open IV. 1000 / 1000 SIG BOLUS SHANTAL Rx#:[id number] Oral 360 / 360 240 / 240 Other: # Voids 0 3 Narrative: Unchanged erythema since yesterday, no drainage appreciated today when I palpate or apply pressure to his proximal sosa Still has unchanged edema from the proximal lower leg to the ankle Results - Labs CBC & Chem 7: 07/04/18 13:45 07/04/18 13:45 Laboratory Results - last 24 hr 07/04/18 07/04/18 07/04/18 13:45 13:45 15:45 WBC 8.3 RBC 3.89 L Hgb 11.4 L Hct 34.5 L MCV 88.8 MCH 29.4 MCHC 33.1 RDW 13.3 Plt Count 198 MPV 9.0 Neut % (Auto) 65.0 Lymph % (Auto) 24.1 Dale % (Auto) 9.6 H Eos % (Auto) 1.0 Baso % (Auto) 0.3 Neut # (Auto) 5.4 Lymph # (Auto) 2.0 Dale # (Auto) 0.8 Eos # (Auto) 0.1 Baso # (Auto) 0.0 WBC Differential . Differential Comment Auto diff final Sodium 136 Potassium 3.4 L Chloride 98 Carbon Dioxide 29.3 Anion Gap 9 BUN 10 Creatinine 0.69 Estimated GFR Greater than 89 Random Glucose 94 Lactic Acid 0.6 Calcium 9.0 Microbiology 07/04/18 13:45 Blood - Peripheral Aerobic Blood Culture - Preliminary No growth in 1 day 07/04/18 13:45 Blood - Peripheral Anaerobic Blood Culture - Preliminary No growth in 1 day 07/04/18 13:40 Blood - Peripheral Aerobic Blood Culture - Preliminary No growth in 1 day 07/04/18 13:40 Blood - Peripheral Anaerobic Blood Culture - Preliminary No growth in 1 day 07/04/18 13:45 Wound - Leg Gram Stain - Final - Imaging Impressions Lower Extremity Ultrasound 07/04/18 00:00 CONCLUSION: 1. Nonspecific soft tissue swelling and edema in the subcutaneous soft tissues. No drainable loculated fluid collections. Assessment and Plan - Plan 38-year-old white male being admitted for possible RLE abscess, refractory cellulitis Right lower extremity infection Possible abscess, refractory cellulitis -Likely result of possible abscess formation and/or under dosing of antibiotics from possible noncompliance right lower extremity soft tissue ultrasound is negative for any focal abscess , ID following, MRI is pending -Continue IV clindamycin for MSSA -podiatry consulted for possible I&D
[2018-07-05] MEDS: Sod Chloride 0.9% Inj 1,000 ML IV.CONT SCH ×2 (13:33→17:56)
--- NOTE | 2018-07-05 15:12 | MB ---
cc: Dayanna Zamudio DPM DATE: 07/05/2018 CHIEF COMPLAINT: Right leg infection. HISTORY OF PRESENT ILLNESS: Mr. Balbuena is a 38-year-old male patient was admitted for a possible abscess and refractory cellulitis. The patient states that he had the abscess for several weeks and was seen in the emergency department and treated with clindamycin and felt that he was getting better; however, recently his symptoms began to increase and worsen. The patient states that he was likely bitten by some type of bug as he was homeless and living in the [facility] at the time that this started. He states that over the last 24 hours, he has had a significant decrease in pain and only has pinpoint tenderness around the ulceration itself. PAST MEDICAL HISTORY: Includes hepatitis C. PAST SURGICAL HISTORY: Includes a history of hand surgery. FAMILY HISTORY: Noncontributory. SOCIAL HISTORY: The patient is no longer homeless, is living somewhere with his . He is a daily smoker and vaguely admits to drug abuse. MEDICATIONS: Please see list. VITAL SIGNS: Temperature 98.0. The T-max 98.1, pulse rate of 78, respiratory rate 16, blood pressure 111/70, pulse oximetry 95% O2 on room air. LABORATORY DATA: White count 8.3, hemoglobin 11.4, hematocrit 34.5, platelets 198,000. Sodium 136, potassium 3.4, chloride 98, carbon dioxide 29.3, BUN 10, wound cultures are pending. Blood cultures are negative x1 day. STUDIES: Ultrasound IS negative for any signs of lobulated collection or drainable abscess. MRI is pending. PHYSICAL EXAMINATION: The patient has palpable DP and PT pulses. Capillary refill time less than 3 seconds. Gross sensation is intact. On the anterior proximal tibial area, there are 2 small ulcerations, one full-thickness at 0.75 cm x 0.7 cm x 0.5 cm right over the tibial crest. There is a central area to deep probing, but no exposed bone. There is slight serosanguineous drainage with palpation. No feeling of fluctuance or crepitus. Tenderness is only with palpation of this area and no malodor. There is surrounding periwound erythema, but no streaking. Edema is minimal. ASSESSMENT AND PLAN: 1)Right leg ulceration with cellulitis -I have a very low suspicion for an abscess at this time. If there was an abscess, it has likely burst and drained on its own, as there is a focal opening in the wound and copious amounts of drainage on each bandage change. However, we will monitor the results of the MRI and if there are signs of a localized abscess, we will plan for surgical intervention. -If MRI is negative for abscess, would recommend local wound care as ordered for the nursing staff and a discharge on antibiotics selected by infectious disease based on their cultures and prior experience. Thank you for this consultation and allowing us to be involved in this patient's care. SHANNON Quiñoens/margaret , 02:26 PM , 02:36 PM SPENCER
--- NOTE | 2018-07-05 17:16 | MR ---
EXAM DATE: 07/05/2018 2:58 PM EDT AGE/SEX: 38 years / Male INDICATIONS: Anterior right mid lower leg sore. CLINICAL DATA: This is the patient's initial encounter. Patient reports that signs and symptoms have been present for 1 week and indicates a pain score of 7/10. MEDICAL/SURGICAL HISTORY: Hepatitis C. . Left hand sx. COMPARISON: No prior exams available for comparison. TECHNIQUE: Multiplanar, multisequence MRI examination was performed without and with ml Gadavist (ga dobutrol) contrast as single exam dose. FINDINGS: Bones: There is some focal bone marrow edema seen in the medial tibial plateau with a probable micro fracture across the top of the tibial plateau. This may be related to recent focal trauma. These to b e correlated with patient's history. Otherwise, the rest of the bone marrow demonstrates normal signa l intensity throughout the mid shaft and distal shaft. Muscle: There appears to be normal signal within the muscle structures. Soft Tissues: There is nonspecific edema and soft tissue swelling in the subcutaneous soft tissues a long the medial and anterior aspect of the lower leg. No definite loculated fluid collections are dem onstrated. Other: The neurovascular structures are intact. CONCLUSION: 1. There is bone marrow edema involving the medial tibial plateau with a linear microfracture along the top of the tibia. This may related to recent focal trauma. Recommend correlate with patient's his tory. 2. Nonspecific soft tissue swelling and edema in the subcutaneous soft tissues along the medial and anterior aspect of the lower leg. Electronically signed by: Augustus Watters MD 07/05/2018 5:15 PM EDT
[2018-07-05] MEDS ORDERED: Gadobutrol PF 7.5 MMOL/7.5 ML Vial (for RAD) IV.SIG ONE (17:18)
[2018-07-06] MEDS: Ketorolac Inj 30 MG/ML (IVP) Vial IV.PUSH PRN ×2 (04:42→09:22)
--- NOTE | 2018-07-06 11:21 | P.PN ---
Subjective Interval history: Patient himself reports overall unchanged level of pain in his right leg. Denies having any fractures or traumatic incidents. Says he works a lot and walks on concrete. Discussed with radiology MRI findings, with no history of trauma, they are convinced that this is osteomyelitis. Physical Exam Vital signs: Vital Signs 07/05/18 12:00 07/05/18 16:00 07/06/18 00:00 Temperature 98.1 F 97.7 F 98.1 F Pulse Rate 78 76 68 Respiratory Rate 18 18 16 Blood Pressure 118/80 107/57 L 117/78 Pulse Oximetry 96 97 97 07/06/18 04:00 07/06/18 08:00 07/06/18 10:51 Temperature 98.1 F 98.4 F Pulse Rate 64 68 Respiratory Rate 18 17 18 Blood Pressure 119/77 118/73 Pulse Oximetry 99 96 Intake & Output 07/05/18 07/06/18 07/06/18 18:59 06:59 18:59 Intake Total 1222 / 1222 Balance 1222 / 1222 Weight 77.5 kg Intake: IV 1222 / 1222 NS Inj 1,000 ML @ 42 mls/hr IV. 1172 / 1172 CONT .[id number] SHANTAL Rx#:[id number] Cleocin 600 mg/NS Premix 600 mg 50 / 50 In 50 ml @ 100 mls/hr IV.SIG Q8H SHANTAL Rx#:[id number] Other: # Voids 2 Narrative: Right leg: Minimally improved erythema since yesterday, again no drainage appreciated today when I palpate or apply pressure to his proximal sosa Still has unchanged edema from the proximal lower leg to the ankle, There is no erythema or edema surrounding the knee joint itself Results - Labs CBC & Chem 7: 07/04/18 13:45 07/06/18 11:47 Microbiology 07/04/18 13:45 Wound - Leg Gram Stain - Final 07/04/18 13:45 Wound - Leg Wound Culture - Final Group A beta Strep S. aureus MRSA 07/04/18 13:45 Blood - Peripheral Aerobic Blood Culture - Preliminary No growth in 2 days 07/04/18 13:45 Blood - Peripheral Anaerobic Blood Culture - Preliminary No growth in 2 days 07/04/18 13:40 Blood - Peripheral Aerobic Blood Culture - Preliminary No growth in 2 days 07/04/18 13:40 Blood - Peripheral Anaerobic Blood Culture - Preliminary No growth in 2 days - Imaging Impressions Lower Extremity MRI 07/05/18 00:00 CONCLUSION: 1. There is bone marrow edema involving the medial tibial plateau with a linear microfracture along the top of the tibia. This may related to recent focal trauma. Recommend correlate with patient's history. 2. Nonspecific soft tissue swelling and edema in the subcutaneous soft tissues along the medial and anterior aspect of the lower leg. Assessment and Plan - Plan 38-year-old white male being admitted for possible RLE abscess, refractory cellulitis Right lower leg pain Right lower extremity infection Possible abscess, refractory cellulitis -Ultrasound does not demonstrate any abscess. Discussed MRI findings with radiology: Lack of clinical history suggesting traumatic force, radiology is ruling this is suspicious for osteomyelitis. Notified ID. Obtaining CT scan to further elucidate possibility of microfracture in medial tibial plateau -Microbiology is confirm that the patient is now growing MRSA and beta strep On clindamycin, starting bactrim DS for MRSA for now [facility]
[2018-07-06 12:34] LABS: Anion Gap 5 meq/L (5-15); Blood Urea Nitrogen 9 mg/dL (7-18); Calcium 8.4 mg/dL (8.5-10.1); Carbon Dioxide 26.9 meq/L (21.0-32.0); Chloride 107 meq/L (98-107); Glomerular Filtration Rate Greater Than 89 mL/min (>89); Glucose,Random 94 mg/dL (74-106); Potassium 4.6 meq/L (3.5-5.1); Sodium 139 meq/L (136-145)
--- NOTE | 2018-07-06 12:51 | CT ---
EXAM DATE: 07/06/2018 11:33 AM EDT AGE/SEX: 38 years / Male INDICATIONS: Tibia plateau fracture CLINICAL DATA: This is the patient's initial encounter. Patient reports that signs and symptoms have been present for 1 day and indicates a pain score of 5/10. MEDICAL/SURGICAL HISTORY: Hepatitis C. None. RADIATION DOSE: 12.52 CTDI (mGy) COMPARISON: MRI of the right lower leg 07-05-2018. TECHNIQUE: Multiple contiguous axial images were acquired using a multirow detector CT scanner witho ut contrast. Multiplanar reconstruction was performed in the sagittal and coronal planes. Using aut omated exposure control and adjustment of the mA and/or kV according to patient size, radiation dose was kept as low as reasonably achievable to obtain optimal diagnostic quality images. DICOM format i mage data is available electronically for review and comparison. FINDINGS: Bones: The bony structures about the knee are in normal alignment. The distal femur and proximal ti denita and fibula are intact. Despite the marrow edema identified on the tibial plateau on the prior MRI , I do not see an actual fracture line or cortical disruption on the CT. Joints: No significant arthropathy or bony hypertrophy is seen. Soft Tissues: There appears to be a small soft tissue defect just anterior to the proximal tibia wit h adjacent soft tissue edema predominantly laterally. This may representing regional cellulitis. Other: No foreign bodies seen. CONCLUSION: 1. Suggestion of a small soft tissue wound just anterior to the upper tibia with regional soft tissu e edema extending laterally most likely representing a regional cellulitis. 2. Despite the bony edema identified in the region of the tibial plateau on prior MRI, I do not see an actual fracture line on the current examination. A subtle nondisplaced fracture cannot be complete ly excluded. 3. No significant effusion. Electronically signed by: Albin Alves MD 07/06/2018 12:49 PM EDT
[2018-07-06] MEDS: Sod Chloride 0.9% Inj 1,000 ML IV.CONT SCH ×2 (13:51→18:03)
[2018-07-06] MEDS: Clindamycin 600 mg/NS Premix 600 MG/50 ML PIGGYBACK IV.SIG SCH ×2 (13:52→22:37)
[2018-07-06] MEDS: Enoxaparin Inj 30 MG/0.3 ML Syringe SQ SCH (13:55)
[2018-07-07] MEDS: Clindamycin 600 mg/NS Premix 600 MG/50 ML PIGGYBACK IV.SIG SCH ×2 (05:25→13:01)
--- NOTE | 2018-07-07 11:48 | P.PN ---
Subjective Interval history: Nursing denies any deterioration since last night. Patient's leg still hurts. Says it still drains Physical Exam Vital signs: Vital Signs 07/06/18 12:00 07/06/18 16:00 07/06/18 20:00 Temperature 97.4 F L 98.1 F 98.0 F Pulse Rate 74 69 72 Respiratory Rate 17 17 17 Blood Pressure 107/72 118/75 117/80 Pulse Oximetry 98 97 96 07/07/18 00:00 07/07/18 08:00 Temperature 97.7 F 98.1 F Pulse Rate 86 76 Respiratory Rate 17 18 Blood Pressure 122/82 141/108 H Pulse Oximetry 96 94 L Intake & Output 07/06/18 07/07/18 07/07/18 18:59 06:59 18:59 Intake Total 3850 / 3850 700 / 700 Balance 3850 / 3850 700 / 700 Weight 77.5 kg 79.5 kg Intake: IV 1350 / 1350 100 / 100 NS Inj 1,000 ML @ 42 mls/hr IV. 1300 / 1300 CONT .[id number] SHANTAL Rx#:[id number] Cleocin 600 mg/NS Premix 600 mg 50 / 50 100 / 100 In 50 ml @ 100 mls/hr IV.SIG Q8H SHANTAL Rx#:[id number] Oral 2500 / 2500 600 / 600 Other: # Voids 4 2 # Bowel Movements 1 1 Narrative: Right leg: Fluctuant area noted just medial to the open wound on the patient's right sosa Surrounded by erythema otherwise Results - Labs CBC & Chem 7: 07/04/18 13:45 07/06/18 11:47 Laboratory Results - last 24 hr 07/06/18 11:47 Sodium 139 Potassium 4.6 D Chloride 107 D Carbon Dioxide 26.9 Anion Gap 5 BUN 9 Creatinine 0.68 Estimated GFR Greater than 89 Random Glucose 94 Calcium 8.4 L Microbiology 07/04/18 13:45 Blood - Peripheral Aerobic Blood Culture - Preliminary No growth in 3 days 07/04/18 13:45 Blood - Peripheral Anaerobic Blood Culture - Preliminary No growth in 3 days 07/04/18 13:40 Blood - Peripheral Aerobic Blood Culture - Preliminary No growth in 3 days 07/04/18 13:40 Blood - Peripheral Anaerobic Blood Culture - Preliminary No growth in 3 days 07/04/18 13:45 Wound - Leg Gram Stain - Final 07/04/18 13:45 Wound - Leg Wound Culture - Final Group A beta Strep S. aureus MRSA - Imaging Impressions Knee CT 07/06/18 00:00 CONCLUSION: 1. Suggestion of a small soft tissue wound just anterior to the upper tibia with regional soft tissue edema extending laterally most likely representing a regional cellulitis. 2. Despite the bony edema identified in the region of the tibial plateau on prior MRI, I do not see an actual fracture line on the current examination. A subtle nondisplaced fracture cannot be completely excluded. 3. No significant effusion. Assessment and Plan - Plan 38-year-old white male being admitted for possible RLE abscess, refractory cellulitis Right lower leg pain Right lower extremity infection Possible abscess, refractory cellulitis -Ultrasound does not demonstrate any abscess. Discussed MRI findings with radiology: with Lack of clinical history of trauma, radiology is ruling this is suspicious for osteomyelitis. Notified ID. Consulting ortho -CT scan of the knee is negative for any fracture. -Microbiology is confirm that the patient is now growing MRSA and beta strep ID has changed clindamycin over to Zyvox, continue Bactrim -Start warm compresses
--- NOTE | 2018-07-07 13:21 | P.PNID ---
Subjective Remarks: Patient is a 38-year-old male, who initially presented to the emergency room on June 22 complaining of pain and swelling on his right leg. He really did not know how he got it but when he noticed that there was a green area on his right leg. It started draining and he went to the emergency room about 3 days after he had noticed a problem. In the emergency room he was diagnosed to have cellulitis, and he was given clindamycin. His problem reportedly improved and he completed the prescribed course of antibiotics. However after he ran out, he started noticing redness, swelling and pain, and it was progressively worsening so he presented to the hospital for further evaluation and treatment. There was a culture of the wound done and it grew MSSA. He has not had any fever chills or sweats. Denies any respiratory, GI or any urinary complaints. Since admission he has not been febrile. Patient has multiple antibiotic allergies. He had severe hives and shortness of breath when he was given penicillin. And he apparently had the same reaction to vancomycin in 1 of his hospitalization in [place]. Infectious disease consultation has been requested to assist with evaluation and treatment. Notes reviewed No fever C/O pain R leg CT - no fracture, no cortical disruption C/S MRSA and Strep Antibiotics: Bactrim Clindamycin Lines: PIV Past Medical History: Reviewed Allergies/Adverse Reactions: Allergies amoxicillin Allergy (Severe, Verified 07/04/18 13:55) hives and rash, throat swelling penicillin G Allergy (Severe, Verified 07/04/18 13:55) Hives all over body mushroom Allergy (Unknown, Verified 07/04/18 13:55) Anaphylaxis onion Allergy (Unknown, Verified 07/04/18 13:55) Rash vancomycin Allergy (Verified 07/04/18 13:55) Anaphylaxis Objective Vital Signs 07/06/18 16:00 07/06/18 20:00 07/07/18 00:00 Temperature 98.1 F 98.0 F 97.7 F Pulse Rate 69 72 86 Respiratory Rate 17 17 17 Blood Pressure 118/75 117/80 122/82 Pulse Oximetry 97 96 96 07/07/18 08:00 07/07/18 12:00 Temperature 98.1 F 98.3 F Pulse Rate 76 67 Respiratory Rate 18 17 Blood Pressure 141/108 H 138/97 H Pulse Oximetry 94 L 98 Intake & Output 07/06/18 07/07/18 07/07/18 18:59 06:59 18:59 Intake Total 3850 / 3850 700 / 700 Balance 3850 / 3850 700 / 700 Weight 77.5 kg 79.5 kg Intake: IV 1350 / 1350 100 / 100 NS Inj 1,000 ML @ 42 mls/hr IV. 1300 / 1300 CONT .[id number] [facility]ANTAL Rx#:[id number] Cleocin 600 mg/NS Premix 600 mg 50 / 50 100 / 100 In 50 ml @ 100 mls/hr IV.SIG Q8H SHANTAL Rx#:[id number] Oral 2500 / 2500 600 / 600 Other: # Voids 4 2 # Bowel Movements 1 1 07/04/18 13:45 Blood - Peripheral Aerobic Blood Culture - Preliminary No growth in 3 days 07/04/18 13:45 Blood - Peripheral Anaerobic Blood Culture - Preliminary No growth in 3 days 07/04/18 13:40 Blood - Peripheral Aerobic Blood Culture - Preliminary No growth in 3 days 07/04/18 13:40 Blood - Peripheral Anaerobic Blood Culture - Preliminary No growth in 3 days 07/04/18 13:45 Wound - Leg Gram Stain - Final 07/04/18 13:45 Wound - Leg Wound Culture - Final Group A beta Strep S. aureus MRSA Lab - Chemistry Results 07/06/18 11:47 Sodium 139 Potassium 4.6 D Chloride 107 D Carbon Dioxide 26.9 Anion Gap 5 BUN 9 Creatinine 0.68 Estimated GFR Greater than 89 Random Glucose 94 Calcium 8.4 L Imaging: ITS Impressions Lower Extremity Ultrasound 07/04/18 00:00 CONCLUSION: 1. Nonspecific soft tissue swelling and edema in the subcutaneous soft tissues. No drainable loculated fluid collections. Lower Extremity MRI 07/05/18 00:00 CONCLUSION: 1. There is bone marrow edema involving the medial tibial plateau with a linear microfracture along the top of the tibia. This may related to recent focal trauma. Recommend correlate with patient's history. 2. Nonspecific soft tissue swelling and edema in the subcutaneous soft tissues along the medial and anterior aspect of the lower leg. Knee CT 07/06/18 00:00 CONCLUSION: 1. Suggestion of a small soft tissue wound just anterior to the upper tibia with regional soft tissue edema extending laterally most likely representing a regional cellulitis. 2. Despite the bony edema identified in the region of the tibial plateau on prior MRI, I do not see an actual fracture line on the current examination. A subtle nondisplaced fracture cannot be completely excluded. 3. No significant effusion. Physical Exam: GENERAL: awake and alert, not in respiratory distress. SKIN: Cool and dry. No generalized rash, no ecchymoses and no evidence of embolic lesions. HEAD: Atraumatic. Normocephalic. No temporal wasting, or tenderness. EYES: [place] conjunctiva. No petechia or hemorrhage. Pupils equal, round and reactive to light. Extraocular movements full and intact. No scleral icterus. No injection or drainage. EARS, NOSE AND THROAT: Nose without bleeding or purulent nasal discharge. No sinus tenderness. Mucous membranes pink and moist. No oral lesions noted. No exudate. No oral thrush. NECK: Trachea midline. Supple and not tender, no meningeal signs CARDIOVASCULAR: Regular rate and rhythm. No murmurs, rubs or gallops heard RESPIRATORY: Clear to auscultation. Breath sounds equal bilaterally. No rales , wheezing or rhonchi ABDOMEN: Soft, non-tender, nondistended. Bowel sounds present and normoactive. No guarding. No rebound. No organomegaly. EXTREMITIES: No clubbing, cyanosis. His RLE is slightly larger then his LLE. There is an open wound on proximal anterior leg that is about 1/2 inch diameter with reddish benjamin purulent drainage, surrounded by induration and erythema, no odor, seems to have some fluctuance. Negative Katherine's sign. NEUROLOGICAL: Non-focal. PSYCHIATRIC: Normal affect, calm and cooperative. LINE: No evidence of infection Assessment and Plan - Plan Impression Cellulitis RLE, ikproved, but worsened after Abx stopped - C/S MSSA - ?osteo on MRI, CT no bony disruption seen Severe reaction to PCN and vancomycin Recommendation Change Clinda to Zyvox - follow CBC Baseline ESR and CRP Also on Bactrim Will get bone scan Consider ortho evaluation and see if with fluid collection that needs I and D Wound care Follow clinical progress I will determine course of Rx once workup completed Explained plan to the patient
[2018-07-07] MEDS: Enoxaparin Inj 30 MG/0.3 ML Syringe SQ SCH (18:15)
[2018-07-07] MEDS: Sod Chloride 0.9% Inj 1,000 ML IV.CONT SCH ×2 (18:53→19:02)
--- NOTE | 2018-07-08 09:58 | P.PNID ---
Subjective Remarks: Patient is a 38-year-old male, who initially presented to the emergency room on June 22 complaining of pain and swelling on his right leg. He really did not know how he got it but when he noticed that there was a green area on his right leg. It started draining and he went to the emergency room about 3 days after he had noticed a problem. In the emergency room he was diagnosed to have cellulitis, and he was given clindamycin. His problem reportedly improved and he completed the prescribed course of antibiotics. However after he ran out, he started noticing redness, swelling and pain, and it was progressively worsening so he presented to the hospital for further evaluation and treatment. There was a culture of the wound done and it grew MSSA. He has not had any fever chills or sweats. Denies any respiratory, GI or any urinary complaints. Since admission he has not been febrile. Patient has multiple antibiotic allergies. He had severe hives and shortness of breath when he was given penicillin. And he apparently had the same reaction to vancomycin in 1 of his hospitalization in [place]. Infectious disease consultation has been requested to assist with evaluation and treatment. Notes reviewed No fever Bone scan has been ordered - not done yet Ortho evaluation pending CT - no fracture, no cortical disruption C/S MRSA and Strep ESR 45 CRP 1.3 Antibiotics: Zyvox Lines: PIV Past Medical History: Reviewed Allergies/Adverse Reactions: Allergies amoxicillin Allergy (Severe, Verified 07/04/18 13:55) hives and rash, throat swelling penicillin G Allergy (Severe, Verified 07/04/18 13:55) Hives all over body mushroom Allergy (Unknown, Verified 07/04/18 13:55) Anaphylaxis onion Allergy (Unknown, Verified 07/04/18 13:55) Rash vancomycin Allergy (Verified 07/04/18 13:55) Anaphylaxis Objective Vital Signs 07/07/18 12:00 07/07/18 16:00 07/07/18 20:00 Temperature 98.3 F 98.0 F 98.2 F Pulse Rate 67 66 75 Respiratory Rate 17 19 15 Blood Pressure 138/97 H 144/89 H 147/92 H Pulse Oximetry 98 99 99 07/07/18 23:42 07/08/18 00:00 07/08/18 04:00 Temperature 97.6 F 98.0 F Pulse Rate 70 76 Respiratory Rate 18 16 15 Blood Pressure 125/91 H 121/86 Pulse Oximetry 96 95 Intake & Output 07/07/18 07/08/18 07/08/18 18:59 06:59 18:59 Intake Total 2024 1400 / 1400 Balance 2024 1400 / 1400 Weight 79.5 kg Intake: IV 1050 / 1050 600 / 600 NS Inj 1,000 ML @ 42 mls/hr IV. 1000 / 1000 CONT .[id number] SHANTAL Rx#:[id number] Cleocin 600 mg/NS Premix 600 mg 50 / 50 In 50 ml @ 100 mls/hr IV.SIG Q8H SHANTAL Rx#:[id number] Zyvox 600 mg Premix 300 ML @ 600 / 600 300 mls/hr IV.SIG Q12H SHANTAL Rx#: [id number] Oral 975 / 975 800 / 800 Other: # Voids 6 3 # Bowel Movements 1 07/04/18 13:45 Blood - Peripheral Aerobic Blood Culture - Preliminary No growth in 3 days 07/04/18 13:45 Blood - Peripheral Anaerobic Blood Culture - Preliminary No growth in 3 days 07/04/18 13:40 Blood - Peripheral Aerobic Blood Culture - Preliminary No growth in 3 days 07/04/18 13:40 Blood - Peripheral Anaerobic Blood Culture - Preliminary No growth in 3 days 07/04/18 13:45 Wound - Leg Gram Stain - Final 07/04/18 13:45 Wound - Leg Wound Culture - Final Group A beta Strep S. aureus MRSA Lab - Hematology Results 07/07/18 21:28 ESR 45 H Lab - Chemistry Results 07/06/18 07/07/18 11:47 21:08 Sodium 139 Potassium 4.6 D Chloride 107 D Carbon Dioxide 26.9 Anion Gap 5 BUN 9 Creatinine 0.68 Estimated GFR Greater than 89 Random Glucose 94 Calcium 8.4 L C-Reactive Protein 1.30 H Imaging: ITS Impressions Lower Extremity Ultrasound 07/04/18 00:00 CONCLUSION: 1. Nonspecific soft tissue swelling and edema in the subcutaneous soft tissues. No drainable loculated fluid collections. Lower Extremity MRI 07/05/18 00:00 CONCLUSION: 1. There is bone marrow edema involving the medial tibial plateau with a linear microfracture along the top of the tibia. This may related to recent focal trauma. Recommend correlate with patient's history. 2. Nonspecific soft tissue swelling and edema in the subcutaneous soft tissues along the medial and anterior aspect of the lower leg. Knee CT 07/06/18 00:00 CONCLUSION: 1. Suggestion of a small soft tissue wound just anterior to the upper tibia with regional soft tissue edema extending laterally most likely representing a regional cellulitis. 2. Despite the bony edema identified in the region of the tibial plateau on prior MRI, I do not see an actual fracture line on the current examination. A subtle nondisplaced fracture cannot be completely excluded. 3. No significant effusion. Physical Exam: GENERAL: awake and alert, not in respiratory distress. SKIN: Cool and dry. No generalized rash, no ecchymoses and no evidence of embolic lesions. HEAD: Atraumatic. Normocephalic. No temporal wasting, or tenderness. EYES: [place] conjunctiva. No petechia or hemorrhage. No scleral icterus. No injection or drainage. EARS, NOSE AND THROAT: Mucous membranes pink and moist. No oral lesions noted. No exudate. No oral thrush. NECK: Trachea midline. Supple and not tender, no meningeal signs CARDIOVASCULAR: Regular rate and rhythm. No murmurs, rubs or gallops heard RESPIRATORY: Clear to auscultation. Breath sounds equal bilaterally. No rales , wheezing or rhonchi ABDOMEN: Soft, non-tender, nondistended. Bowel sounds present and normoactive. No guarding. No rebound. No organomegaly. EXTREMITIES: No clubbing, cyanosis. His RLE is slightly larger then his LLE. There is an open wound on proximal anterior leg that is about 1/2 inch diameter with reddish benjamin purulent drainage, surrounded by induration and erythema, no odor, seems to have some fluctuance. Negative Katherine's sign. NEUROLOGICAL: Non-focal. PSYCHIATRIC: Normal affect, calm and cooperative. LINE: No evidence of infection Assessment and Plan - Plan Impression Cellulitis RLE, ikproved, but worsened after Abx stopped - C/S MSSA - ?osteo on MRI, CT no bony disruption seen Severe reaction to PCN and vancomycin Recommendation Continue Zyvox - follow CBC Await bone scan If bone scan negative - give 10-14 days Zyvox If bone scan (+), not a lot of options due to list of severe allergic reactions - ?challenge with Teflaro - Tygacil - Zyvox: side effects high with intermediate use Ortho evaluation Wound care Follow clinical progress
--- NOTE | 2018-07-08 13:24 | P.PN ---
Subjective Interval history: Nursing denies any deterioration since last night. Patient himself says his pain is a lot better since day 1 of admission. Physical Exam Vital signs: Vital Signs 07/07/18 16:00 07/07/18 20:00 07/07/18 23:42 Temperature 98.0 F 98.2 F Pulse Rate 66 75 Respiratory Rate 19 15 18 Blood Pressure 144/89 H 147/92 H Pulse Oximetry 99 99 07/08/18 00:00 07/08/18 04:00 07/08/18 08:00 Temperature 97.6 F 98.0 F 97.6 F Pulse Rate 70 76 79 Respiratory Rate 16 15 18 Blood Pressure 125/91 H 121/86 115/83 Pulse Oximetry 96 95 95 07/08/18 12:00 Temperature 97.8 F Pulse Rate 81 Respiratory Rate 19 Blood Pressure 127/79 Pulse Oximetry 97 Intake & Output 07/07/18 07/08/18 07/08/18 18:59 06:59 18:59 Intake Total 2024 1400 / 1400 Balance 2024 1400 / 1400 Weight 79.5 kg Intake: IV 1050 / 1050 600 / 600 NS Inj 1,000 ML @ 42 mls/hr IV. 1000 / 1000 CONT .[id number] SHANTAL Rx#:[id number] Cleocin 600 mg/NS Premix 600 mg 50 / 50 In 50 ml @ 100 mls/hr IV.SIG Q8H SHANTAL Rx#:[id number] Zyvox 600 mg Premix 300 ML @ 600 / 600 300 mls/hr IV.SIG Q12H SHANTAL Rx#: [id number] Oral 975 / 975 800 / 800 Other: # Voids 6 3 # Bowel Movements 1 Narrative: Right lower extremity with no active drainage noted, slightly improved overall appearance of erythema since day 1 No lower extremity edema noted Results - Labs CBC & Chem 7: 07/04/18 13:45 07/06/18 11:47 Laboratory Results - last 24 hr 07/07/18 07/07/18 21:08 21:28 ESR 45 H C-Reactive Protein 1.30 H Microbiology 07/04/18 13:45 Blood - Peripheral Aerobic Blood Culture - Preliminary No growth in 4 days 07/04/18 13:45 Blood - Peripheral Anaerobic Blood Culture - Preliminary No growth in 4 days 07/04/18 13:40 Blood - Peripheral Aerobic Blood Culture - Preliminary No growth in 4 days 07/04/18 13:40 Blood - Peripheral Anaerobic Blood Culture - Preliminary No growth in 4 days Assessment and Plan - Plan 38-year-old white male being admitted for possible RLE abscess, refractory cellulitis Right lower leg pain Right lower extremity infection Possible abscess, refractory cellulitis -Ultrasound does not demonstrate any abscess. Discussed MRI findings with radiology: with Lack of clinical history of trauma, radiology is ruling this is suspicious for osteomyelitis. Notified ID. -Possible osteomyelitis on MRI, bone scan pending -CT scan of the knee is negative for any fracture. -MRSA growing from wound culture, on Zyvox and Bactrim Bone scan is pending -Orthopedics input appreciated, recommending medical management
[2018-07-08] MEDS: Enoxaparin Inj 30 MG/0.3 ML Syringe SQ SCH (15:14)
--- NOTE | 2018-07-08 15:35 | NM ---
EXAM DATE: 07/08/2018 8:28 AM EDT AGE/SEX: 38 years / Male INDICATIONS: Right leg abscess. CLINICAL DATA: This is the patient's initial encounter. Patient reports that signs and symptoms have been present for 1 month and indicates a pain score of 4/10. MEDICAL/SURGICAL HISTORY: Hepatitis C. . Hand surgery. COMPARISON: [facility] [place]/O CONTRAST, 11/18/2017. . TECHNIQUE: Three-phase bone scanning of the Right leg. was performed. No correlative bone scan available for comparison. DOSE: 32.5 mCi Tc99m MDP IV FINDINGS: There is symmetric arrival of radiotracer bilaterally on the flow study. No areas of increased uptake on the blood pool images. Delayed bone scan images demonstrate focal increased radiotracer activity at the sternomanubrial junction. No other asymmetrical areas of uptake are identified. Specifically there is no uptake in the soft tis sues of bone below the knee. CONCLUSION: 1. Focal uptake in the sternomanubrial junction. CT scan of the chest is suggested 2. No uptake in the extremities to suggest os myelitis or abscess. 3. Symmetrical renal uptake. Electronically signed by: Gurvinder Macdonald MD 07/08/2018 3:34 PM EDT
--- NOTE | 2018-07-08 19:52 | P.PNPOD ---
Subjective Interval history: Patient seen bedside resting comfortably. Reports mild pain to right leg. Does report resolving edema erythema and pain to right lower extremity. Physical Exam Vital signs: Vital Signs 07/07/18 20:00 07/07/18 23:42 07/08/18 00:00 Temperature 98.2 F 97.6 F Pulse Rate 75 70 Respiratory Rate 15 18 16 Blood Pressure 147/92 H 125/91 H Pulse Oximetry 99 96 07/08/18 04:00 07/08/18 08:00 07/08/18 12:00 Temperature 98.0 F 97.6 F 97.8 F Pulse Rate 76 79 81 Respiratory Rate 15 18 19 Blood Pressure 121/86 115/83 127/79 Pulse Oximetry 95 95 97 07/08/18 16:00 Temperature 98.1 F Pulse Rate 63 Respiratory Rate 18 Blood Pressure 120/60 Pulse Oximetry 97 Intake & Output 07/08/18 07/08/18 07/09/18 06:59 18:59 06:59 Intake Total 1400 / 1400 5 / 5 300 / 300 Balance 1400 / 1400 5 / 5 300 / 300 Weight 79.5 kg Intake: IV 600 / 600 300 / 300 Zyvox 600 mg Premix 300 ML @ 600 / 600 300 / 300 300 mls/hr IV.SIG Q12H SHANTAL Rx#: [id number] Oral 800 / 800 5 / 5 Other: # Voids 3 8 # Bowel Movements 1 Narrative: Superficial ulcerations noted to anterior proximal tibia measuring less than 1 cm x 1 cm by 0.1 depth. No surrounding erythema noted mild edema noted to right lower extremity. Tenderness to palpation. DP PT pulses within normal limits and palpable. Capillary refill time under 3 seconds and within normal limits. Medications and Allergies Active Medications: Active Medications Bacitracin (Baciguent Oint) 1 applicatio TOPICAL BID [facility] Last Admin: 07/08/18 11:00 Dose: 1 applicatio Enoxaparin Sodium (Lovenox Inj) 30 mg SQ Q24H [facility] Last Admin: 07/08/18 15:14 Dose: Not Given Sodium Chloride (Ns Inj) 1,000 mls @ 0 mls/hr IV.SIG BOLUS [facility] Last Infusion: 07/04/18 15:09 Dose: Infused Sodium Chloride (Ns Inj) 1,000 mls @ 42 mls/hr IV.CONT .[id number] [facility] Last Admin: 07/07/18 19:02 Dose: 42 mls/hr Linezolid (Zyvox 600 Mg Premix) 300 mls @ 300 mls/hr IV.SIG Q12H [facility] Last Infusion: 07/08/18 19:38 Dose: Infused Ketorolac Tromethamine (Toradol Inj) 15 mg IV.PUSH Q6H PRN PRN Reason: Acute Pain Stop: 07/09/18 13:59 Last Admin: 07/06/18 09:22 Dose: 15 mg Sodium Chloride (Ns Flush) 2 ml IV.FLUSH BID SHANTAL Last Admin: 07/08/18 10:54 Dose: Not Given Sodium Chloride (Ns Flush) 2 ml IV.FLUSH PRN PRN PRN Reason: FLUSH AFTER USING IV ACCESS Tramadol HCl (Ultram) 50 mg PO Q6H PRN PRN Reason: breakthru pain Last Admin: 07/08/18 10:59 Dose: 50 mg Allergies Allergy/AdvReac Type Severity Reaction Status Date / Time amoxicillin Allergy Severe hives and Verified 07/04/18 13:55 rash, throat swelling penicillin G Allergy Severe Hives all Verified 07/04/18 13:55 over body mushroom Allergy Unknown Anaphylaxis Verified 07/04/18 13:55 onion Allergy Unknown Rash Verified 07/04/18 13:55 vancomycin Allergy Anaphylaxis Verified 07/04/18 13:55 Home Medications Medication Instructions Recorded Confirmed Type No Known Home Medications 07/04/18 07/04/18 History Results - Labs CBC & Chem 7: 07/04/18 13:45 07/06/18 11:47 Laboratory Results - last 24 hr 07/07/18 07/07/18 21:08 21:28 ESR 45 H C-Reactive Protein 1.30 H Microbiology 07/04/18 13:45 Blood - Peripheral Aerobic Blood Culture - Preliminary No growth in 4 days 07/04/18 13:45 Blood - Peripheral Anaerobic Blood Culture - Preliminary No growth in 4 days 07/04/18 13:40 Blood - Peripheral Aerobic Blood Culture - Preliminary No growth in 4 days 07/04/18 13:40 Blood - Peripheral Anaerobic Blood Culture - Preliminary No growth in 4 days - Imaging Impressions Bone Scan Nuclear Medicine 07/08/18 00:00 CONCLUSION: 1. Focal uptake in the sternomanubrial junction. CT scan of the chest is suggested 2. No uptake in the extremities to suggest os myelitis or abscess. 3. Symmetrical renal uptake. Assessment and Plan - Plan 38-year-old male with right anterior tibia ulcerations with resolving infection Patient examined and evaluated with all questions answered Continue with daily dressing changes of bacitracin and dry sterile dressing Okay to discharge per podiatry once antibiotic recommendations have been made by infectious disease Recommended compression dressing to right lower extremity to patient Patient to follow-up with wound care once discharged
[2018-07-09 05:57] LABS: Baso % (Auto) 0.6 % (0.0-2.0); Eos # (Auto) 0.1 th/mm3 (0.0-0.4); Eos % (Auto) 1.5 % (0.0-4.0); Hematocrit 39.6 % (39.0-51.0); Hemoglobin 13.1 gm/dL (13.0-17.0); Lymph # (Auto) 2.2 th/mm3 (1.0-4.8); Lymph % (Auto) 33.6 % (9.0-44.0); Mean Corpuscular HGB Conc 33.1 % (32.0-36.0); Mean Corpuscular Hemoglobin 29.1 pg (27.0-34.0); Mean Corpuscular Volume 87.7 fL (80.0-100.0); Mean Platelet Volume 10.8 fL (7.0-11.0); Mono # (Auto) 0.5 th/mm3 (0.0-0.9); Neut # (Auto) 3.8 th/mm3 (1.8-7.7); Neut % (Auto) 56.3 % (16.0-70.0); Platelet Count 246 th/mm3 (150-450); Red Blood Count 4.52 mil/mm3 (4.50-5.90); Red Cell Distribution Width 13.7 % (11.6-17.2); White Blood Count 6.7 th/mm3 (4.0-11.0)
--- NOTE | 2018-07-09 07:03 | P.CONOP ---
[facility] Orthopedics Consult Note - [facility] Consult date: 07/07/18 Consult reason: other (Right lower extremity cellulitis, rule out abscess) Chief complaint: right lower extremity cellulitis failed Narrative: Mister Balbuena is a 38-year-old gentleman who initially presented to the ER on June 22 with an evaluation significant for right lower extremity cellulitis. He was started on clindamycin and indoor subjective improvement of the symptoms. Following the completion of the clindamycin course, his erythema and edema and pain returned resulting in re-presentation to the ER. He has been admitted to the medicine service. Orthopedic surgery consultation was requested for concern of soft tissue abscess and possible osteomyelitis. At bedside, patient denies any knee pain. He has full, painless weightbearing to the right lower extremity. He does note a small abscess along the border of the tibia metaphysis. This has been nondraining. He denies other complaints.. Review of Systems Constitutional: Denies chills, Denies fatigue, Denies fever(s) Eyes: Denies change in vision, Denies loss of vision Ears, Nose, Mouth, and Throat: Denies headache(s), Denies hearing loss Cardiovascular: Denies chest pain, Denies shortness of breath Respiratory: Denies cough, Denies wheezing Gastrointestinal: Denies abdominal pain, Denies constipation, Denies vomiting Musculoskeletal: Reports joint pain, Denies numbness, Denies stiffness, Denies tingling Neurologic: Denies tingling/numbness/burning sensations, Denies weakness Psychiatric: Denies anxiety PMFSH - History History Provided By: Patient - Medical History Medical History: Medical History (Last Reviewed 07/05/18 @ 09:36 by Aliza Yadav MD) Hepatitis C Medical history unknown - Surgical History Surgical History: Surgical History (Last Reviewed 07/05/18 @ 09:36 by Aliza Yadav MD) H/O hand surgery - Family History Family History: Family History (Last Reviewed 07/05/18 @ 09:36 by Aliza Yadav MD) Other Cellulitis, leg - Tobacco History Second Hand Smoke Exposure: No Tobacco Use In Past 30 Days: Yes Smoking Status: Current every day smoker Tobacco Type: Cigarettes - Alcohol History How Often Do You Have a Drink Containing Alcohol: Never - Substance Use History Substance History: Past History - 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 - Travel History Recent Travel in the [place] Within the Last 8 Weeks: No Recent Travel Out of the Country Within the Last 8 Weeks: No - Immunization History Tetanus Immunization: >5 Years Hx Influenza Vaccine This Season: No Medications and Allergies Active Medications: Active Medications Bacitracin (Baciguent Oint) 1 applicatio TOPICAL BID [facility] Last Admin: 07/08/18 20:06 Dose: 1 applicatio Enoxaparin Sodium (Lovenox Inj) 30 mg SQ Q24H [facility] Last Admin: 07/08/18 15:14 Dose: Not Given Sodium Chloride (Ns Inj) 1,000 mls @ 0 mls/hr IV.SIG BOLUS [facility] Last Infusion: 07/04/18 15:09 Dose: Infused Sodium Chloride (Ns Inj) 1,000 mls @ 42 mls/hr IV.CONT .[id number] [facility] Last Admin: 07/07/18 19:02 Dose: 42 mls/hr Linezolid (Zyvox 600 Mg Premix) 300 mls @ 300 mls/hr IV.SIG Q12H [facility] Last Infusion: 07/09/18 04:07 Dose: Infused Ketorolac Tromethamine (Toradol Inj) 15 mg IV.PUSH Q6H PRN PRN Reason: Acute Pain Stop: 07/09/18 13:59 Last Admin: 07/06/18 09:22 Dose: 15 mg Sodium Chloride (Ns Flush) 2 ml IV.FLUSH BID [facility] Last Admin: 07/08/18 20:06 Dose: Not Given Sodium Chloride (Ns Flush) 2 ml IV.FLUSH PRN PRN PRN Reason: FLUSH AFTER USING IV ACCESS Tramadol HCl (Ultram) 50 mg PO Q6H PRN PRN Reason: breakthru pain Last Admin: 07/09/18 02:12 Dose: 50 mg Allergies Allergy/AdvReac Type Severity Reaction Status Date / Time amoxicillin Allergy Severe hives and Verified 07/04/18 13:55 rash, throat swelling penicillin G Allergy Severe Hives all Verified 07/04/18 13:55 over body mushroom Allergy Unknown Anaphylaxis Verified 07/04/18 13:55 onion Allergy Unknown Rash Verified 07/04/18 13:55 vancomycin Allergy Anaphylaxis Verified 07/04/18 13:55 Home Medications Medication Instructions Recorded Confirmed Type No Known Home Medications 07/04/18 07/04/18 History Exam Vital signs: Vital Signs 07/08/18 08:00 07/08/18 12:00 07/08/18 16:00 Temperature 97.6 F 97.8 F 98.1 F Pulse Rate 79 81 63 Respiratory Rate 18 19 18 Blood Pressure 115/83 127/79 120/60 Pulse Oximetry 95 97 97 07/08/18 20:00 07/09/18 00:00 Temperature 98.0 F 97.9 F Pulse Rate 72 83 Respiratory Rate 12 17 Blood Pressure 122/82 138/87 Pulse Oximetry 100 96 Intake & Output 07/08/18 07/08/18 07/09/18 06:59 18:59 06:59 Intake Total 1400 / 1400 5 / 5 1080 / 1080 Balance 1400 / 1400 5 / 5 1080 / 1080 Weight 79.5 kg 79.5 kg Intake: IV 600 / 600 600 / 600 Zyvox 600 mg Premix 300 ML @ 600 / 600 600 / 600 300 mls/hr IV.SIG Q12H [facility] Rx#: [id number] Oral 800 / 800 5 / 5 480 / 480 Other: # Voids 3 8 2 Date of Last Bowel Movement 07/08/18 # Bowel Movements 1 - Constitutional no acute distress, cooperative - Routine HEENT Exam Head: Present: normocephalic, atraumatic Eye: Present: EOMI - Routine Neck Exam Present: trachea midline - Routine Cardiovascular Exam Present: RRR - Routine Abdominal Exam Present: soft Comments: Nondistended - Additional findings Additional findings: Focused violation of the right lower extremity demonstrates moderate edema about the tibia. There is focal cellulitis localized to the proximal tibia with a 1 cm diameter ulceration about the medial tibia metaphysis. There is no evidence of drainage or underlying fluctuance. There is full and painless knee range of motion. Sensation is intact to sural, saphenous, SP, DP, tibial nerve distribution. There is a 2+ DP and PT pulse. Results - Labs Result Diagrams: 07/09/18 04:20 07/06/18 11:47 Labs: Laboratory Results - last 24 hr 07/09/18 04:20 WBC 6.7 RBC 4.52 Hgb 13.1 Hct 39.6 MCV 87.7 MCH 29.1 MCHC 33.1 RDW 13.7 Plt Count 246 MPV 10.8 Neut % (Auto) 56.3 Lymph % (Auto) 33.6 Rich % (Auto) 8.0 Eos % (Auto) 1.5 Baso % (Auto) 0.6 Neut # (Auto) 3.8 Lymph # (Auto) 2.2 Rich # (Auto) 0.5 Eos # (Auto) 0.1 Baso # (Auto) 0.0 WBC Differential . Differential Comment Auto diff final - Diagnostic results Imaging: Impressions Bone Scan Nuclear Medicine 07/08/18 00:00 CONCLUSION: 1. Focal uptake in the sternomanubrial junction. CT scan of the chest is suggested 2. No uptake in the extremities to suggest os myelitis or abscess. 3. Symmetrical renal uptake. Assessment and Plan - Assessment and Plan 38-year-old gentleman presents to the hospital with recurrent cellulitis following an initial treatment with clindamycin as an outpatient. I additionally reviewed the MRI, bone scan and other advanced imaging. There is no evidence of soft tissue abscess or osteomyelitis. Surgical intervention is not indicated. Would recommend primary medical management. Appreciate infectious disease recommendations regarding specifications and duration of antibiotics given negative bone scan. No further orthopedic surgery intervention necessary at this point. Please call us with any questions or concerns that arise.
[2018-07-09] MEDS: Sod Chloride 0.9% Inj 1,000 ML IV.SIG SCH (11:09)
[2018-07-09] MEDS: Sod Chloride 0.9% Inj 1,000 ML IV.CONT SCH (11:29)
[2018-07-09] MEDS: Enoxaparin Inj 30 MG/0.3 ML Syringe SQ SCH (14:31)
--- NOTE | 2018-07-09 18:43 | P.PN ---
Subjective Interval history: RN reports no deterioration. Pt says pain present, improved since admission. Girlfriend reports he's had pain for > 1 month. Pt underwent CPR 1-2 months ago for drug o/d. Bone scan lighting up at sternomanubrial junction, neg on leg. Physical Exam Vital signs: Vital Signs 07/08/18 20:00 07/09/18 00:00 07/09/18 08:00 Temperature 98.0 F 97.9 F 97.8 F Pulse Rate 72 83 78 Respiratory Rate 12 17 17 Blood Pressure 122/82 138/87 110/84 Pulse Oximetry 100 96 96 07/09/18 12:00 07/09/18 16:00 Temperature 97.6 F 97.4 F L Pulse Rate 80 78 Respiratory Rate 17 17 Blood Pressure 134/69 91/61 L Pulse Oximetry 97 95 Intake & Output 07/08/18 07/09/18 07/09/18 18:59 06:59 18:59 Intake Total 1005 / 1005 1080 / 1080 2300 / 2300 Balance 1005 / 1005 1080 / 1080 2300 / 2300 Weight 79.5 kg Intake: IV 1000 / 1000 600 / 600 300 / 300 NS Inj 1,000 ML @ 42 mls/hr IV. 1000 / 1000 CONT .[id number] [facility] Rx#:[id number] Zyvox 600 mg Premix 300 ML @ 600 / 600 300 / 300 300 mls/hr IV.SIG Q12H [facility] Rx#: [id number] Oral 5 / 5 480 / 480 2000 / 2000 Other: # Voids 8 2 10 Date of Last Bowel Movement 07/08/18 # Bowel Movements 1 2 Narrative: improved healed area on right foot; no pus seen today. unlabored breathing Results - Labs CBC & Chem 7: 07/09/18 04:20 07/06/18 11:47 Laboratory Results - last 24 hr 07/09/18 04:20 WBC 6.7 RBC 4.52 Hgb 13.1 Hct 39.6 MCV 87.7 MCH 29.1 MCHC 33.1 RDW 13.7 Plt Count 246 MPV 10.8 Neut % (Auto) 56.3 Lymph % (Auto) 33.6 [place] % (Auto) 8.0 Eos % (Auto) 1.5 Baso % (Auto) 0.6 Neut # (Auto) 3.8 Lymph # (Auto) 2.2 [place] # (Auto) 0.5 Eos # (Auto) 0.1 Baso # (Auto) 0.0 WBC Differential . Differential Comment Auto diff final Microbiology 07/04/18 13:45 Blood - Peripheral Aerobic Blood Culture - Final No growth in 5 days 07/04/18 13:45 Blood - Peripheral Anaerobic Blood Culture - Final No growth in 5 days 07/04/18 13:40 Blood - Peripheral Aerobic Blood Culture - Final No growth in 5 days 07/04/18 13:40 Blood - Peripheral Anaerobic Blood Culture - Final No growth in 5 days Assessment and Plan - Plan 38-year-old white male being admitted for possible RLE abscess, refractory cellulitis Right lower leg pain Right lower extremity infection Possible abscess, refractory cellulitis -Ultrasound neg for abscess. -Possible osteomyelitis on MRI. -CT scan of the knee is negative for any fracture. -MRSA growing from wound culture, on Zyvox per ID Bone scan is negative for leg; but sternomanubrium is showing uptake; ct chest ordered. -Orthopedics input appreciated, recommending medical management
--- NOTE | 2018-07-09 20:14 | CT ---
EXAM DATE: 07/09/2018 7:19 PM EDT AGE/SEX: 38 years / Male INDICATIONS: Abnormal bone scan in sternomanubrial junction. CLINICAL DATA: This is the patient's initial encounter. Patient reports that signs and symptoms have been present for 1 day and indicates a pain score of 0/10. MEDICAL/SURGICAL HISTORY: Hepatitis C. None. RADIATION DOSE: 7.98 CTDI (mGy) COMPARISON: [facility] [place]/O CONTRAST, 11/18/2017. . TECHNIQUE: Multiple contiguous axial images were obtained through the chest without contrast. Image s were obtained in suspended respiration using multiple row detector helical technique. Using automa damon exposure control and adjustment of the mA and/or kV according to patient size, radiation dose was kept as low as reasonably achievable to obtain optimal diagnostic quality images. DICOM format imag e data is available electronically for review and comparison. FINDINGS: Lungs: The lungs are clear. Mediastinum: Minimal coronary artery calcification. No enlarged lymph nodes. Aorta diameter within n ormal limits. Pleurae: No evidence of focal thickening or pleural effusion. Axillae: Unremarkable. Bony Structures: There is a minimally displaced fracture of the mid sternal body. Fracture line is v isible. Bone callus formation is seen. Mild vacuum phenomenon at the sternomanubrial joint. Miscellaneous: Upper abdomen unremarkable. CONCLUSION: 1. Fracture of the mid sternal body with bone callus formation. Likely represents a subacute to supervisor joiners nathaly finding. Finding is not present on the prior CT of October 2017. 2. Minimal coronary artery calcification. Electronically signed by: Anatoliy Kumari MD 07/09/2018 8:13 PM EDT
--- NOTE | 2018-07-10 12:37 | P.DS ---
Date of admission: 07/04/18 17:43 Primary care physician: No Primary Care Physician Brief History from admission: 38-year-old white male being admitted for possible abscess, refractory cellulitis. Patient was in his usual state of health until yesterday when he noticed that his right lower extremity infection started draining again with increasing pain and redness. Reports being nauseated but no vomiting, no fevers. He took some Percocet that was not his to help alleviate the pain. Initially the patient says his leg condition was improving once he was discharged from the emergency department about 10-14 days ago with clindamycin, however his symptoms relapsed. On 06/22 pt had come in to the ER with a painful right leg, diagnosed with cellulitis and discharged home with clindamycin. At that time he had edema and erythema from just below his patella to his ankle which showed significant improvement with cessation of drainage while being tx'd clindamycin. Claims his was appropriately administering the clindamycin to him which was dosed at 300 mg every 8 hours. A wound culture at that time grewHowever over the last 24 hours his symptoms unfortunately relapsed and had substantial pain which worsened with weightbearing, now with recurring drainage. He says he is able to apply pressure to the medial aspect of his leg and his original open sore now drains again with considerable pain. He initially had an arterial Doppler study done upon the initial ER visit which was negative for thrombosis. In the emergency department the patient was given a dose of 600 mg of IV Clinda mycin and Bactrim. He was not a candidate for Dalvance due to a listed vancomycin anaphylaxis allergy. DS: Medications - Discharge Medications Prescriptions: bacitracin 1 applicatio TOPICAL BID #1 tube sulfamethoxazole-trimethoprim [Bactrim DS] 1 tab PO Q12H #28 tab DS: Summary Hospital Course: Patient was admitted, started on IV antibiotics for right leg cellulitis. Ultrasound was negative for abscess. Underwent MRI which was equivocal for any osteomyelitis. CT scan was negative for any fracture. Bone scan was performed which was negative for any ostial in the leg. Chest CT was performed for uptake at the sternomanubrial junction which was indicative of a fracture which likely occurred the patient had CPR 1-2 months ago. Patient's overall cellulitis significantly improved with resolution of drainage. Wound culture grew out group a beta strep and MRSA that was sensitive to Zyvox and Bactrim. Patient has met maximal benefit from hospitalization and is clinically stable for discharge. - Time Spent with Patient Total time spent providing and/or coordinating discharge services: Less than 30 minutes - Quality: VTE Deep Vein Thrombosis/Pulmonary Embolism Present on Admission: No Exam Vital signs: Vital Signs 07/09/18 16:00 07/09/18 20:00 07/10/18 00:00 Temperature 97.4 F L 97.6 F 98.0 F Pulse Rate 78 76 74 Respiratory Rate 17 18 18 Blood Pressure 91/61 L 103/68 113/70 Pulse Oximetry 95 97 99 07/10/18 08:00 07/10/18 12:00 Temperature 97.3 F L 97.3 F L Pulse Rate 69 73 Respiratory Rate 17 17 Blood Pressure 106/62 110/62 Pulse Oximetry 97 97 Intake & Output 07/09/18 07/10/18 07/10/18 18:59 06:59 18:59 Intake Total 2300 / 2300 780 / 780 Balance 2300 / 2300 780 / 780 Weight 74.4 kg Intake: IV 300 / 300 300 / 300 Zyvox 600 mg Premix 300 ML @ 300 / 300 300 / 300 300 mls/hr IV.SIG Q12H [facility] Rx#: [id number] Oral 1999 / 1999 480 / 480 Other: # Voids 10 2 Date of Last Bowel Movement 07/08/18 # Bowel Movements 2 Narrative: Right lower extremity shows a healing wound with significantly improved cellulitis at the area/level of the proximal anterior sosa Results Procedures completed during hospitalization: none - Impressions ITS Impressions Lower Extremity Ultrasound 07/04/18 00:00 CONCLUSION: 1. Nonspecific soft tissue swelling and edema in the subcutaneous soft tissues. No drainable loculated fluid collections. Lower Extremity MRI 07/05/18 00:00 CONCLUSION: 1. There is bone marrow edema involving the medial tibial plateau with a linear microfracture along the top of the tibia. This may related to recent focal trauma. Recommend correlate with patient's history. 2. Nonspecific soft tissue swelling and edema in the subcutaneous soft tissues along the medial and anterior aspect of the lower leg. Knee CT 07/06/18 00:00 CONCLUSION: 1. Suggestion of a small soft tissue wound just anterior to the upper tibia with regional soft tissue edema extending laterally most likely representing a regional cellulitis. 2. Despite the bony edema identified in the region of the tibial plateau on prior MRI, I do not see an actual fracture line on the current examination. A subtle nondisplaced fracture cannot be completely excluded. 3. No significant effusion. Bone Scan Nuclear Medicine 07/08/18 00:00 CONCLUSION: 1. Focal uptake in the sternomanubrial junction. CT scan of the chest is suggested 2. No uptake in the extremities to suggest os myelitis or abscess. 3. Symmetrical renal uptake. Chest CT 07/09/18 00:00 CONCLUSION: 1. Fracture of the mid sternal body with bone callus formation. Likely represents a subacute to chronic finding. Finding is not present on the prior CT of October 2017. 2. Minimal coronary artery calcification. Discharge Plan - Discharge Disposition Patient Disposition: Discharge Home - Discharge Condition Condition: Stable - Discharge Order Discharge Orders: Discharge Order (Routine); Ordered 07/10/18 Ordered By: Ian Scott - Physicians Team Primary Care Provider: Primary Care Arielle,Anita Attending Provider: Ian Scott Other Providers: Aliza Yadav MD ; Dayanna Zamudio DPM ; Fortino Mclaughlin MD
[2018-07-10] MEDS: Sod Chloride 0.9% Inj 1,000 ML IV.CONT SCH (14:14)
[2018-07-10] MEDS: Enoxaparin Inj 30 MG/0.3 ML Syringe SQ SCH (14:16)
[2018-07-11 08:55] VITALS: BP 114/71; PULSE 68; RESP 18; TEMP 97.7; O2SAT 97
== END 2018-07-11 12:00 | disposition home or self-care (01) ==
LOC: NEDA 09:21 → NEPD 09:21 → N07 16:29
PROVIDERS: ADMIT Hospitalist; ATTEND Hospitalist